=== PATIENT | male | born 1975 | race Caucasian/White ===

== ENCOUNTER 2022-02-02 14:00 | Outpatient (RCR) | payer OTHER, SELFPAY | END 2022-04-23 07:49 | disposition home or self-care (01) | LOC: HO.PTWFD 14:00 | PROVIDERS: PCP Physician Assistant; Visit Provider Student in an Organized Health Care Education/Training Program | DX: M25.551 Pain in right hip (principal) | CPT/HCPCS: 97110; 97140; 97161; 97530; 97535 ==

== ENCOUNTER 2023-11-08 14:12 | Outpatient (AMB) | payer OTHER, SELFPAY ==
--- NOTE | 2023-11-08 14:40 | A.OFFPC_ITS ---
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 Balancing Machine Operator Required: No Allergies codeine Adverse Reaction (Unknown, Verified 11/08/23 14:45) Unknown Tobacco use date assessed: 11/08/23 Dental Screening Dental Screen Date: 11/08/23 Did you have a dental visit in the last 12 months?: Yes Did you have a dental problem in the last 6 months where you did not have access to dental care?: No Was dental information given to patient?: Patient has dentist HPI HPI Comments History of Present Illness Details This is a 48-year-old male with a past medical history of low testosterone, severe obesity, hypertension, type 2 diabetes and psoriatic arthritis presenting to [facility]. He transferred from my panel at [facility] primary care. Type 2 diabetes, obesity, low testosterone-followed by endocrinology, Dr. Edge His last hemoglobin A1c was 6.1%, per patient. He is compliant with medications. He has weight loss on Mounjaro. He had an eye exam recently- no retinopathy per patient. He is on rosuvastatin 10 mg with an LDL of 74 and a goal of less than 100. Psoriatic arthritis-followed by [facility], Reta Ley. Taking Skyrizi. Right hip pain-she had an x-ray that showed severe osteoarthritis. He is followed at [facility]. He gets cortisone injections every 3 months. He tried physical therapy without improvement. He is hoping cortisone injections we will get him to age 51 before needing a hip replacement. Hypertension, microalbuminuria-compliant with hydrochlorothiazide-lisinopril. Blood pressure is controlled. Nonsmoker. Does not drink alcohol. ROS: Constitutional: No unexplained weight loss, fever, chills, fatigue or night sweats. Eyes: No vision changes Respiratory: No shortness of breath. Cardiovascular: No chest pain Endocrine: No cold or heat intolerance. No polyuria or polydipsia. Psychiatric: No depression or anxiety. Physical exam: Constitutional: Alert, in no distress. Neck: Supple, Full range of motion. No lymphadenopathy. No palpable thyroid masses. Respiratory: Clear to auscultation. Cardiovascular: S1 S2 regular. No murmurs Neurologic: No focal neurological deficits. Extremities: Warm and well perfused. No clubbing, cyanosis or edema. [facility] Medical History (Updated 11/08/23 @ 16:03 by IRIS Reyes) Morbid obesity Allergic rhinitis Microalbuminuria Right hip pain Essential hypertension Low testosterone Type II diabetes mellitus Hypothyroidism Diabetes mellitus Dyslipidemia Hypertension Psoriasis Surgical History H/O wisdom tooth extraction Hx of adenoidectomy Family History (Updated 11/08/23 @ 14:58 by Radha Rene) Father Psoriatic arthritis Social History Household Members: Spouse Housing: House Alcohol intake: current Alcohol intake frequency: does not drink Patient Tobacco Use Status: Never used Tobacco e-Cigarette/Vaping Use: Never Used service: No Current occupational status: employed 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 1. Little interest or pleasure in doing things: not at all 2. Feeling down, depressed, or hopeless: not at all 3. Trouble falling or staying asleep, or sleeping too much: not at all 4. Feeling tired or having little energy: not at all 5. Poor appetite or overeating: not at all 6. Feeling bad about yourself - or that you are a failure or have let yourself or your family down: not at all 7. Trouble concentrating on things, such as reading the newspaper or watching television: not at all 8. Moving or speaking so slowly that other people could have noticed. Or the opposite - being so fidgety or restless that you have been moving around a lot more than usual: not at all 9. Thoughts that you would be better off or of hurting yourself in some way: not at all Total score: 0 Depression Screening Interpretation: Negative Depression Screening Done: Yes 89592 - PHQ-9 Billing: Yes Source: Developed by Drs. Mary Curran, Aric Lugo and colleagues, with an educational lorenza from [employer]. Thrive Questionnaire Date Thrive assessed: 11/08/23 I am a: Patient What is your living situation today?: I have a steady place to live Within the past 12 months, did the food you bought not last and you didn't have the money to get more?: Never true Within the past 12 months, did you worry whether your food would run out before you got money to buy more?: Never true Do you have trouble paying for medicines?: No Do you have trouble getting transportation to medical appointments?: No Do you have trouble paying your heating and electricity bill?: No Do you have trouble taking care of your child, family member or friend?: No Do you have trouble with day-to-day activities such as bathing, preparing meals, shopping, managing finances, etc.?: No Are you currently unemployed and looking for a job?: No Are you interested in more education?: No Please select the resources that you would like help with: None Currently or been in a relationship where the following occur: No concerns reported THRIVE Score: 0 AUDIT C Alcohol Use Questionnaire (AUDIT-C) 1. How often do you have a drink containing alcohol?: Never Total Score: 0 Score Reviewed/Action Taken: Yes LUIS-7 AMB Questionnaire LUIS-7 Date LUIS - 7 assessed: 11/08/23 Feeling nervous, anxious, or on edge: 0 = Not at all Not being able to stop or control worryin = Not at all Worrying too much about different things: 0 = Not at all Trouble relaxin = Not at all Being so restless that it is hard to sit still: 0 = Not at all Becoming easily annoyed or irritable: 0 = Not at all Feeling afraid as if something awful might happen: 0 = Not at all Total LUIS-7 score (0-4 normal; 5-9 mild; 10-14 moderate; 15-21 severe): 0 Source: Developed by Mary Guzmán, Aric Lugo and colleagues, with an educational lorenza from [employer]. LUIS-7 Assessment Billing LUIS-7 Assessment Tool: LUIS-7 Assessment 28764 Physical exam (Primary Care) Vital Signs: Last Vital Signs Temp 98.7 F 11/08/23 15:06 Pulse 87 11/08/23 15:06 Resp 16 11/08/23 15:06 BP 128/80 11/08/23 15:06 Pulse Ox 96 11/08/23 15:06 Oxygen Delivery Method Room Air 11/08/23 15:06 BMI result Body Mass Index 53.9 Tobacco/Smoking Status: Tobacco use Status Tobacco use date assessed 11/08/23 11/08/23 14:59 Patient Tobacco Use Status Never used Tobacco 11/08/23 14:43 e-Cigarette/Vaping Use Never Used 11/08/23 14:59 PHQ-9: PHQ-9 Score PHQ-9: Total score 0 11/08/23 15:26 Depression Screening Interpretation: Negative Thrive Assessment: Date of Thrive Assessment Date Thrive assessed 11/08/23 11/08/23 15:08 Currently or been in a relationship where the following occur: No concerns reported Assessment and Plan Assessment & Plan (1) Type II diabetes mellitus: Code(s): E11.9 - Type 2 diabetes mellitus without complications Qualifiers: Diabetes mellitus superintendent terminal insulin use: without superintendent terminal use Diabetes mellitus complication status: with kidney complications Diabetes mellitus complication detail: with diabetic microalbuminuria Qualified Code(s): E11.29 - Type 2 diabetes mellitus with other diabetic kidney complication; R80.9 - Proteinuria, unspecified Plan: Well-controlled. Continue management per endocrinology. (2) Hypothyroidism: Code(s): E03.9 - Hypothyroidism, unspecified Qualifiers: Hypothyroidism type: acquired Qualified Code(s): E03.9 - Hypothyroidism, unspecified Plan: Continue levothyroxine. (3) Morbid obesity: Code(s): E66.01 - Morbid (severe) obesity due to excess calories Plan: Continue efforts at weight loss and taking Mounjaro. (4) Psoriasis: Code(s): L40.9 - Psoriasis, unspecified Plan: Managed by Dermatology. (5) Essential hypertension: Code(s): I10 - Essential (primary) hypertension Plan: Controlled. Continue efforts at weight loss and low-sodium diet and avoidance of caffeine. Plan Follow up in 6 months for physical exam. Medications: New rosuvastatin 10 mg PO BEDTIME 90 tabs 3RF levothyroxine 150 mcg PO DAILY 90 tabs 3RF rosuvastatin 10 mg PO BEDTIME 90 tabs 3RF levothyroxine 150 mcg PO DAILY 90 tabs 3RF rosuvastatin 10 mg PO BEDTIME 90 tabs 3RF levothyroxine 150 mcg PO DAILY 90 tabs 3RF lisinopril-hydrochlorothiazide 20-12.5 mg 1 tab PO DAILY 90 tabs 3RF Refilled lisinopril-hydrochlorothiazide 20-12.5 mg 1 tab PO DAILY 90 tabs 3RF lisinopril-hydrochlorothiazide 20-12.5 mg 1 tab PO DAILY 90 tabs 3RF Coding Level of Care Code Est Pt Level 4 (57825) Diagnoses Type 2 diabetes mellitus with diabetic microalbuminuria, without long-term current use of insulin E11.29; R80.9 Diabetes mellitus superintendent terminal insulin use: without superintendent terminal use Diabetes mellitus complication status: with kidney complications Diabetes mellitus complication detail: with diabetic microalbuminuria Acquired hypothyroidism E03.9 Hypothyroidism type: acquired Morbid obesity E66.01 Psoriasis L40.9 Essential hypertension I10 Additional Codes LUIS-7 Assessment Billing - LUIS-7 Assessment Tool: LUIS-7 Assessment [id number] ([id number])
[2023-11-08 15:06] VITALS: BP 128/80; PULSE 87; RESP 16; TEMP 37.1; O2SAT 96; BMI 53.9
== END 2023-11-08 15:41 | disposition home or self-care (01) ==
PROVIDERS: PCP Physician Assistant; Visit Provider Physician Assistant Medical
DX: E11.29 Type 2 diabetes mellitus with other diabetic kidney complication (principal); E66.01 Morbid (severe) obesity due to excess calories; Z68.43 Body mass index [BMI] 50.0-59.9, adult; R80.9 Proteinuria, unspecified; E03.9 Hypothyroidism, unspecified; L40.9 Psoriasis, unspecified; I10 Essential (primary) hypertension
CPT/HCPCS: 99214

== ENCOUNTER 2024-03-06 15:27 | Outpatient (AMB) | payer OTHER, SELFPAY ==
--- NOTE | 2024-03-06 15:40 | A.OFFPC_ITS ---
Vital Signs 03/06/24 15:48 Height 5 ft 3 in Weight 310 lb BMI 54.9 BP 116/72 Blood Pressure Location Rt brachial Position Sitting Pulse 97 Pulse Source Pulse Oximeter Pulse Oximetry (%) 97 Oxygen Delivery Method Room Air Intake Visit Reasons: cpe Intake Note: Physical Photoengraving Etcher Required: No Allergies codeine Adverse Reaction (Unknown, Verified 03/06/24 15:48) Unknown Tobacco use date assessed: 03/06/24 Dental Screening Dental Screen Date: 11/08/23 HPI HPI Comments History of Present Illness Details This is a 48-year-old male with a past medical history of low testosterone, severe obesity, hypertension, type 2 diabetes and psoriatic arthritis presenting to [facility]. He transferred from my panel at [facility] care. Type 2 diabetes, obesity, low testosterone-followed by endocrinology, Dr. Edge His last hemoglobin A1c was 6.0%, per patient. He is compliant with medications. He has weight loss on Mounjaro. He is on rosuvastatin. He had a panel of labs done recently, and they will send it to me via the portal. Psoriatic arthritis-followed by [facility], Reta Ley. Taking Skyrizi. He feels Cosentyx worked a little better, but his insurance stopped approving it. Right hip pain-he had an x-ray that showed severe osteoarthritis. He is f ollowed at [facility]. He gets cortisone injections every 3 months. He is starting physical therapy again. He will need a hip replacement, but he has to lose weight. He is working on this. He is following a low-carbohydrate diet and using protein shakes. He is also on Mounjaro. Defers referral. He takes Tylenol as needed, but the pain has been bothering him more. He does not want to take opioids. Hypertension, microalbuminuria-compliant with hydrochlorothiazide-lisinopril. Blood pressure is controlled. Nonsmoker. Does not drink alcohol. Patient up-to-date with flu and COVID-19 vaccines through the pharmacy. 12/11/2019 Tdap Received PPSV23 in 2013. Eye exam up-to-date. No diabetic retinopathy. Colonoscopy was done at [facility] in 2023. Patient was advised to repeat this in 10 years. ROS: Constitutional: No unexplained weight loss, fever, chills, fatigue or night sweats. Eyes: No vision changes, blurry vision, double vision, eye pain, eye redness, eye discharge. ENT: No hearing loss, sneezing, congestion, runny nose or sore throat. Respiratory: No shortness of breath, cough or sputum production. Cardiovascular: No chest pain, chest pressure or chest discomfort. No palpitations. Gastrointestinal: No anorexia, nausea, vomiting or diarrhea. No abdominal pain or blood in stool. Genitourinary: No dysuria, hematuria, testicular masses, groin swelling or pain. He endorses urinary frequency on Jardiance. Neurologic: No headache, dizziness, syncope, unilateral weakness, ataxia, numbness or tingling in the extremities. Musculoskeletal: See HPI Hematologic/Lymphatics: No bleeding or bruising. No painful lymph nodes. Skin: No rash or itching. Endocrine: No cold or heat intolerance. No polyuria or polydipsia. Psychiatric: No depression or anxiety. No SI/HI. Physical exam: Constitutional: Alert, in no distress. Head: Normocephalic. Eyes: Pupils are equal, round and reactive to light. Extraocular muscles intact. Ear, Nose and Throat: Canals clear. TMs normal. Normal nasal mucosa. No nasal discharge. No oral lesions. Neck: Supple, Full range of motion. No lymphadenopathy. No palpable thyroid masses. Respiratory: Clear to auscultation. Cardiovascular: S1 S2 regular. No murmurs. Gastrointestinal: Abdomen soft, non-tender, non-distended. Normal bowel sounds. No palpable masses. Neurologic: No focal neurological deficits. Symmetric patellar reflexes. Moves all extremities spontaneously. Sensation intact bilaterally. Skin: No rashes . Extremities: Warm and well perfused. 1+ bilateral lower extremity edema. Psychiatric: Normal mood and affect [facility] Medical History (Updated 03/06/24 @ 16:49 by IRIS Reyes) Class 3 obesity Morbid obesity Allergic rhinitis Microalbuminuria Right hip pain Essential hypertension Low testosterone Type II diabetes mellitus Hypothyroidism Diabetes mellitus Dyslipidemia Hypertension Psoriasis Surgical History H/O wisdom tooth extraction Hx of adenoidectomy Family History (Updated 11/08/23 @ 14:58 by Radha Rene MA) Father Psoriatic arthritis Social History Household Members: Spouse Housing: House Alcohol intake: current Alcohol intake frequency: does not drink Patient Tobacco Use Status: Never used Tobacco e-Cigarette/Vaping Use: Never Used service: No Current occupational status: employed 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 1. Little interest or pleasure in doing things: not at all 2. Feeling down, depressed, or hopeless: not at all 3. Trouble falling or staying asleep, or sleeping too much: not at all 4. Feeling tired or having little energy: not at all 5. Poor appetite or overeating: not at all 6. Feeling bad about yourself - or that you are a failure or have let yourself or your family down: not at all 7. Trouble concentrating on things, such as reading the newspaper or watching television: not at all 8. Moving or speaking so slowly that other people could have noticed. Or the opposite - being so fidgety or restless that you have been moving around a lot more than usual: not at all 9. Thoughts that you would be better off or of hurting yourself in some way: not at all Total score: 0 Source: Developed by Drs. Ge Downs, Mary Dunn, Aric Lugo and colleagues, with an educational lorenza from [employer]. Thrive Questionnaire Date Thrive assessed: 11/08/23 I am a: Patient What is your living situation today?: I have a steady place to live Within the past 12 months, did the food you bought not last and you didn't have the money to get more?: Never true Within the past 12 months, did you worry whether your food would run out before you got money to buy more?: Never true Do you have trouble paying for medicines?: No Do you have trouble getting transportation to medical appointments?: No Do you have trouble paying your heating and electricity bill?: No Do you have trouble taking care of your child, family member or friend?: No Do you have trouble with day-to-day activities such as bathing, preparing meals, shopping, managing finances, etc.?: No Are you currently unemployed and looking for a job?: No Are you interested in more education?: No Please select the resources that you would like help with: None Currently or been in a relationship where the following occur: No concerns reported THRIVE Score: 0 AUDIT C Alcohol Use Questionnaire (AUDIT-C) 1. How often do you have a drink containing alcohol?: Never 2. How many drinks containing alcohol do you have on a typical day when you are drinking?: 1 or 2 3. How often do you have six or more drinks on one occasion?: Never Total Score: 0 LUIS-7 AMB Questionnaire LUIS-7 Date LUIS - 7 assessed: 11/08/23 Feeling nervous, anxious, or on edge: 0 = Not at all Not being able to stop or control worryin = Not at all Worrying too much about different things: 0 = Not at all Trouble relaxin = Not at all Being so restless that it is hard to sit still: 0 = Not at all Becoming easily annoyed or irritable: 0 = Not at all Feeling afraid as if something awful might happen: 0 = Not at all Total LUIS-7 score (0-4 normal; 5-9 mild; 10-14 moderate; 15-21 severe): 0 Source: Developed by Drs. Ge Downs, Mary Dunn, Arci Lugo and colleagues, with an educational lorenza from [employer]. Physical exam (Primary Care) Vital Signs: Last Vital Signs Pulse 97 03/06/24 15:48 BP 116/72 03/06/24 15:48 Pulse Ox 97 03/06/24 15:48 Oxygen Delivery Method Room Air 03/06/24 15:48 BMI result Body Mass Index 54.9 Tobacco/Smoking Status: Tobacco use Status Tobacco use date assessed 03/06/24 03/06/24 15:50 Patient Tobacco Use Status Never used Tobacco 03/06/24 15:47 e-Cigarette/Vaping Use Never Used 03/06/24 15:47 PHQ-9: PHQ-9 Score PHQ-9: Total score 0 03/06/24 16:10 Thrive Assessment: Date of Thrive Assessment Date Thrive assessed 11/08/23 03/06/24 15:47 Currently or been in a relationship where the following occur: No concerns reported Coding Level of Care Code Est Pt Prev Care 40-64y(19830) Diagnoses Routine physical examination Z00.00 Type 2 diabetes mellitus with diabetic microalbuminuria, without long-term current use of insulin E11.29; R80.9 Diabetes mellitus 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 As part of this visit we reviewed the following issues, which are considered and essential part of preventative health in this age group: - Testicular cancer screening, which includes self exam teaching - Screening for colon cancer - Discussed Prostate cancer screening - Blood pressure screening - Cholesterol screening - Nutritional and exercise counseling - Counseling of injury prevention including fire prevention, smoke alarms and seat belt usage - Screening for depression - Education about skin cancer - Recommendations about immunizations - Recommendation of an eye exam - Screening for substance abuse (2) Type II diabetes mellitus: Code(s): E11.9 - Type 2 diabetes mellitus without complications Category: Medical Qualifiers: Diabetes mellitus termite control technician insulin use: without halfway use Diabetes mellitus complication status: with kidney complications Diabetes mellitus complication detail: with diabetic microalbuminuria Qualified Code(s): E11.29 - Type 2 diabetes mellitus with other diabetic kidney complication; R80.9 - Proteinuria, unspecified Plan: Well-controlled. Continue current regimen. Continue efforts at weight loss. (3) Right hip pain: Code(s): M25.551 - Pain in right hip Category: Medical Plan: This is secondary to severe arthritis. Trial of gabapentin. I prescribed this for 300 mg 3 times a day, but he plans to reserve it for nighttime. Advised him to try 300 mg at bedtime, and he can increase to 600 mg at bedtime if the lower dose is ineffective. Side effects and administration reviewed. Do not drive, operate heavy machinery if the medication causes drowsiness or dizziness. (4) Class 3 obesity: Code(s): E66.813 - Obesity, class 3 Category: Medical Plan: Continue GLP 1 and lifestyle modifications. Declines referral. Orders: Orders Prostate Specific Antigen Today Z12.5 - Encounter for screening for malignant neoplasm of prostate Medications: New gabapentin 300 mg PO TID 90 caps 0RF
[2024-03-06 15:48] VITALS: BP 116/72; PULSE 97; O2SAT 97; BMI 54.9
--- OUTSIDE RECORDS SUMMARY | 2024-03-06 17:18 | XMS_ITS | Continuity of Care Document ---
Author Organization [facility] Address [address] [place] [address] Phone [phone] Care Team Providers Care Plugging Machine Operator Name Role Phone Zoey Bhandari. Care Team Information Supervisor Grips [phone] Paradise Palafox . IRIS Care Team Information Receiv er [phone] Problems Active Problems Provider Date Type 2 diabetes mellitus Ignacio West M.D. Onset: 12/23/2021 Essential hypertension Ignacio West M.D. O nset: 12/23/2021 Obesity Ignacio West M.D. Onset: 1 Hypogonadotropic hypogonadism Ignacio West M.D. Onset: 05/08/2022 Hypothyroidism Ignacio West M.D. Onset: 0 05/08/2022 Psoriasis Ignacio West M.D. Onset: 0 08/25/2022 Social History Type Date Description Comments Sex Unknown Tobacco Use Start: Unknown Never Smoked Cigarettes Smoking Status Reviewed: 08/25/22 Never Smoked Cigaret stalin ETOH Use Occasionally consumes wine Allergies and adverse reactions Active Allergies Criticality Reaction Severity Comments Date Codeine Unable to assess criticality 12/23/2021 Medications Active Medications SIG Qnty Indications Ordering Provider Date Apjegobq69zd/0.5ML Solution Pen-Inject inject weekly 6ml Ignacio West M.D. 10/29/2023 Rnjkpnarn85ht Tablets 1 tablet by mouth every day 90tabs Ignacio West M.D. 10/29/2023 Nojrmtkhupxt64jr/5GM (1%) Gel apply 1 packet to skin very morning 150gm Ignacio West M.D. 10/01/2023 Lisinopril-Hydrochlor pokooknks59-00.5mg Tablets 1 by mouth every day 90Zoey Hogue. Zjheacsmx540qhf Tablets 1 by mouth every day 90taKenzi. CHICA Rhoades History Medications Zapkjedhkjbn80.25mg/Act (1.62%) Gel Apply 2 Packets Topically To Skin Once A Day Ignacio West M.D. 10/01/2023 - 10/01/2023 Trulicity1.5mg/0.5ML Solutio n Pen-Inject inject weekly 6ml Ignacio simon M.D. 06/07/2023 - 10/29/2023 Ywucvjit92.5mg/0.5ML Solutio n Pen-Inject inject weekly 6ml Ignacio simon M.D. 05/21/2023 - 10/29/2023 Vital Signs Date Vital Result Comment 02/11/2024 1:24pm BP Systolic 120 mmHg BP Diastolic 70 mmHg Heart Rate 72 /min Height 63 inches 5'3 Weight 312.25 lb BMI (Body Mass Index) 55.3 kg/m2 Results Test Acquired Date Facility Test Result H/L Range Note Laboratory test finding 02/11/2024 Inhouse Glucose Fingerstick 115 Comp. Metabolic Panel (14) 01/08/2024 [facility] Glucose 96 mg/dL 70-99 BUN 8 mg/dL 6-24 Creatinine 0.75 mg/dL Low 0.76-1.27 eGFR 112 mL/min/1.7 3 >59 BUN/Creatinine Ratio 11 9-20 Sodium 136 mmol/L 134-144 Potassium 4.3 mmol/L 3.5-5.2 Chloride 97 mmol/L 96-106 Carbon Dioxide, Total 23 mmol/L 20-29 Calcium 9.6 mg/dL 8.7-10.2 Protein, Total 6.8 g/dL 6.0-8.5 Albumin 4.4 g/dL 4.1-5.1 Globulin, Total 2.4 g/dL 1.5-4.5 Bilirubin, Total 0.4 mg/dL 0.0-1.2 Alkaline Phosphatase 63 IU/L 44-121 Ast (Sgot) 21 IU/L 0-40 Alt (SGPT) 27 IU/L 0-44 Laboratory test finding 01/08/2024 [facility] Testosterone 791 ng/dL 264-916 1 Albumin/Creatin ine Ratio, Random Urine 01/08/2024 [facility] Albumin, Urine 4.8 ug/mL Not Estab. Creatinine, Urine 34.7 mg/dL Not Estab. Alb/Creat Ratio 14 mg/gcreat 0-29 2 TSH+Free T4 01/08/2024 [facility] TSH 1.020 uIU/mL 0.450-4.50 0 T4,Free(Direct) 1.47 ng/dL 0.82- 1.77 CBC With Differential/Pl atelet 01/08/2024 [facility] WBC 9.5 x10E3/uL 3.4-10.8 RBC 5.80 x10E6/uL 4.14-5.80 Hemoglobin 15.9 g/dL 13.0-17.7 Hematocrit 50.6 % 37.5-51.0 MCV 87 fL 79-97 MCH 27.4 pg 26.6-33.0 MCHC 31.4 g/dL Low 31.5-35.7 RDW 13.7 % 11.6-15.4 Platelets 226 x10E3/uL 150-450 Neutrophils 62 % Not Estab. Lymphs 29 % Not Estab. Monocytes 7 % Not Estab. Eos 1 % Not Estab. Basos 1 % Not Estab. Immature Cells TNP Neutrophils (Absolute) 5.8 x10E3/uL 1.4-7.0 Lymphs (Absolute) 2.8 x10E3/uL 0.7-3.1 Monocytes(Absol fredy) 0.7 x10E3/uL 0.1-0.9 Eos (Absolute) 0.1 x10E3/uL 0.0-0.4 Baso (Absolute) 0.1 x10E3/uL 0.0-0.2 Immature Granulocytes 0 % Not Estab. Immature Grans (Abs) 0.0 x10E3/uL 0.0-0.1 NRBC TNP Hematology Comments: TNP Hemoglobin A1c 01/08/2024 [facility] Hemoglobin A1c 6.0 % High 4.8-5.6 3 Urinalysis, Complete 01/08/2024 [facility] Specific [place] 1.013 1.005-1.03 0 pH 7.5 5.0-7.5 Urine-Color Yellow Yellow Appearance Clear Clear WBC Esterase Negative Negative Protein Negative Negative/T race Glucose 3+ Abnormal Negative Ketones Negative Negative Occult Blood Negative Negative Bilirubin Negative Negative Urobilinogen,Se mi-Qn 0.2 mg/dL 0.2-1.0 Nitrite, Urine Negative Negative Microscopic Examination See Comment: 4 Microscopic Examination See below: 5 WBC None seen /hpf 0 - 5 RBC None seen /hpf 0 - 2 Epithelial Cells (non renal) None seen /hpf 0 - 10 Epithelial Cells (renal) TNP Casts None seen /lpf None seen Cast Type TNP Crystals TNP Crystal Type TNP Mucus Threads TNP Bacteria None seen None seen/Few Yeast TNP Trichomonas TNP Comment TNP Lipid Panel 01/08/2024 [facility] Cholesterol, Total 123 mg/dL 100-199 Triglycerides 158 mg/dL High 0-149 HDL Cholesterol 33 mg/dL Low >39 VLDL Cholesterol Sergo 27 mg/dL 5-40 LDL Chol Calc (Nih) 63 mg/dL 0-99 LDL Calc Comment: TNP Laboratory test finding 10/29/2023 Inhouse Glucose Fingerstick 145 Hemoglobin A1c 6.0% Laboratory test finding 05/21/2023 Inhouse Glucose Fingerstick 97 Hemoglobin A1c 6.3% Basic Metabolic Panel 01/29/2023 [facility] Glucose 118 mg/dL High (70-99) BUN 13 mg/dL (6-20) Creatinine 0.7 mg/dL (0.7-1.2) Sodium 137 mmol/L (133-145) Potassium 4.5 mmol/L (3.6-5.2) Chloride 99 mmol/L (98-107) Bicarbonate 28 mmol/L (22-29) Anion Gap 10 (4-17) Calcium 9.6 mg/dL (8.6-10.5) Estimated GFR Creatinine 113 ML/MIN/1.7 3M2 6 Lipid Panel 01/29/2023 [facility] Cholesterol, Total 133 mg/dL (<200) Triglyceride 112 mg/dL (<150) HDL Chol 37 mg/dL Low (>39) LDL Cholesterol, Calculated 74 mg/dL (0-130) Non HDL Cholesterol (Calc) 96 mg/dL (<160) Urinalysis Complete 01/29/2023 [facility] Appear/Color YELLOW 7 SP. [place] 1.028 (1.002-1.0 30) Urine PH 6.5 (5.0-8.0) Urine Albumin TRACE Abnormal (Neg) Urine Glucose NEGATIVE (Neg) Urine Ketones NEGATIVE (Neg) Urine Bilirubin NEGATIVE (Neg) Urine Hemoglobin NEGATIVE (Neg) Urine Nitrite NEGATIVE (Neg) Urine Leukocyte NEGATIVE (Neg) Urobilinogen NORMAL mg/dL (Norm) Urine WBCs 1 /HPF (0-5) Urine RBCs 1 /HPF (0-3) Mucus SLIGHT /LPF Laboratory test finding 01/29/2023 [facility] Hemoglobin A1c 6.0 % High (4.0-5.6) 8 Complete Abc With Diff 01/29/2023 [facility] WBC 9.3 K/MM3 (4.0-11.0) RBC 5.56 M/MM3 (4.70-6.10 ) HGB 15.0 GM/DL (13.7-17.1 ) HCT 48.4 % (40.5-50.0 ) MCV 87.1 FL (80.0-94.0 ) MCH 27.0 pg (27.0-34.0 ) MCHC 31.0 g/dL Low (33.0-37.0 ) PLT 236 K/MM3 (150-460) RDW-SD 45.3 FL (<47.0) MPV 11.2 FL (9.4-12.4) Automated NRBC 0.0 #/100WBC'S Abs. NRBC 0.0 K/MM3 Neut # 5.4 K/MM3 (1.3-7.0) Lymph # 3.0 K/MM3 (0.8-3.1) [place]# 0.8 K/MM3 (0.4-1.3) Eo # 0.1 K/MM3 (0.0-0.4) Baso # 0.1 K/MM3 (0.0-0.1) Abs. Imm Gran 0.0 K/MM3 Neut 57.8 % (44-76) Lymph 32.0 % (15-43) Monocyte 8.2 % (4.5-10.5) Eo 1.1 % (0-6) Baso 0.5 % (0-2) Imm Gran 0.4 % Laboratory test finding 01/29/2023 [facility] PSA 0.1 NG/ML (0-4) 9 TSH With Reflex To FT4 1.67 uIU/mL (0.4-4.2) 25Oh Vitamin D 45.4 NG/ML (20-50 ) Testosterone 500 ng/dL (280-800) Laboratory test finding 11/27/2022 Inhouse Glucose Fingerstick 94 Hemoglobin A1c 5.8% Laboratory test finding 08/25/2022 Inhouse Glucose Fingerstick 99 Hemoglobin A1c 5.8% Laboratory test finding 05/22/2022 [facility] Testosterone 304 ng/dL (280-800) Laboratory test finding 05/08/2022 [facility] Testosterone Total (Males > 15 Yrs) <pending> Laboratory test finding 05/08/2022 Inhouse Glucose Fingerstick 126 Hemoglobin A1c 6.0 Laboratory test finding 02/07/2022 [facility] Cortisol 4.7 g /dL 10 Laboratory test finding 02/06/2022 [facility] Cortisol <pending> Laboratory test finding 02/06/2022 Inhouse Glucose Fingerstick 135 Laboratory test finding 02/02/2022 [facility] Cortisol 3.6 g /dL 11 Laboratory test finding 01/12/2022 [facility] Cortisol <pending> Comprehensive Metabolic Panl 01/09/2022 [facility] Glucose 104 mg/dL High (70-99) BUN 9 mg/dL (6-20) Creatinine 0.7 mg/dL (0.7-1.2) Sodium 137 mmol/L (133-145) Potassium 4.7 mmol/L (3.6-5.2) Chloride 99 mmol/L (98-107) Bicarbonate 28 mmol/L (22-29) Anion Gap 10 (4-17) Albumin 4.6 GM/DL (3.4-4.8) Calcium 9.6 mg/dL (8.6-10.5) Bilirubin,Total 0.4 mg/dL (0-1.2 ) Total Protein 7.3 GM/DL (6.2-8.2 ) Ag Ratio 1.7 Ast 33 U/L (0-40) Alk Phos 64 U/L (40-129) Alt 42 U/L High (0-41) Estimated GFR Creatinine 117 ML/MIN/1.7 3M2 12 Lipid Panel 01/09/2022 [facility] Cholesterol, Total 151 mg/dL (<200) Triglyceride 196 mg/dL High (<150) HDL Chol 32 mg/dL Low (>39) LDL Cholesterol, Calculated 80 mg/dL (0-130) Non HDL Cholesterol (Calc) 119 mg/dL (<160) Urinalysis Complete 01/09/2022 [facility] Appear/Color YELLOW 13 SP. [place] 1.019 (1.002-1.0 30) Urine PH 6.0 (5.0-8.0) Urine Albumin NEGATIVE (Neg) Urine Glucose NEGATIVE (Neg) Urine Ketones NEGATIVE (Neg) Urine Bilirubin NEGATIVE (Neg) Urine Hemoglobin NEGATIVE (Neg) Urine Nitrite NEGATIVE (Neg) Urine Leukocyte NEGATIVE (Neg) Urobilinogen NORMAL mg/dL (Norm) Urine WBCs 1 /HPF (0-5) Urine RBCs 1 /HPF (0-3) Mucus SLIGHT /LPF Squamous Epith <1 /HPF (0-8) Complete Abc With Diff 01/09/2022 [facility] WBC 8.6 K/MM3 (4.0-11.0) RBC 5.08 M/MM3 (4.70-6.10 ) HGB 13.7 GM/DL (13.7-17.1 ) HCT 44.8 % (40.5-50.0 ) MCV 88.2 FL (80.0-94.0 ) MCH 27.0 pg (27.0-34.0 ) MCHC 30.6 g/dL Low (33.0-37.0 ) PLT 192 K/MM3 (150-460) RDW-SD 44.7 FL (<47.0) MPV 11.5 FL (9.4-12.4) Automated NRBC 0.0 #/100WBC'S Abs. NRBC 0.0 K/MM3 Neut # 5.0 K/MM3 (1.3-7.0) Lymph # 2.7 K/MM3 (0.8-3.1) [place]# 0.6 K/MM3 (0.4-1.3) Eo # 0.2 K/MM3 (0.0-0.4) Baso # 0.1 K/MM3 (0.0-0.1) Abs. Imm Gran 0.0 K/MM3 Neut 58.0 % (44-76) Lymph 31.8 % (15-43) Monocyte 6.9 % (4.5-10.5) Eo 2.2 % (0-6) Baso 0.6 % (0-2) Imm Gran 0.5 % Laboratory test finding 01/09/2022 [facility] TSH 2.05 uIU/mL (0.4-4.2) Free T4 1.27 ng/dL (0.70-1.80 ) Urinary Microalbumin 01/09/2022 [facility] Micro-Albumin 24.2 mg/L High (<20) 14 Malb/Creat Ratio 19.1 MG/GM (0-20) Urine Creat For Micro Albumin 126.4 mg/dL Laboratory test finding 01/09/2022 [facility] Prolactin 10.8 NG/ML (4.0-15.2) FSH 0.8 MIU/ML Low (1.5-12.4) 15 LH 0.5 MIU/ML Low (1.5-12.4) 16 Testosterone 554 ng/dL (280-800) Anti Thyroid Peroxidase AB <3.0 IU/mL (<5.6) 17 Cortisol 5.0 g /dL 18 1 Adult male reference interval is based on a population of healthy nonobese males (BMI <30) between 19 and 39 years old. Jimmy, et.al. JCEM 2017,102;6622-3303. PMID: 28278011. 2 Normal: 0 - 29 Moderately increased: 30 - 300 Severely increased: >300 3 Prediabetes: 5.7 - 6 .4 Diabetes: >6.4 Glycemic control for adults with diabetes: <7.0 4 Microscopic follows if indicated. 5 Microscopic was kathie cated and was performed. 6 Creatinine based est imated glomerular filtration (eGFR) in adults is calculated using the National Kidney Foundation recommended 2020 CKD-EPI equation. Estimates GFR from serum creatinine, age and sex. 7 CLEAR 8 MONITORING: In known diabetic patients, hemoglobin A1c targets should be discussed with health care provider. DIAGNOSTIC USE: The [place] Diabetes Association (ADA) and the World Health Organization (WHO) recommend the use of HbA1c to diagnose diabetes using a threshold of 6.5%. Patients who have an HbA1c between 5.7% and 6.4% are considered at increased risk for developing diabetes in the future. CAUTION: Falsely low HbA1c results may be observed in patients with hemolytic anemia, homozygous forms of abnormal hemoglobin (e.g. SS, CC, SC), , recent blood loss or hemoglobin F greater than 7%. Fructosamine may be used as an alternate test in these cases. REFERENCE: ADA: Standards of Medical Care in Diabetes 2020, The Journal of Clinical and Applied Research and Education Volume 43, Supplement 1 9 TEST PERFORMED USING THE CLARI ELECTROCHEMILLUMINESCENCE TOTAL PSA ASSAY. PSA VALUES OBTAINED WITH OTHER ASSAY METHODS OR KITS CANNOT BE USED INTERCHANGEABLY. 10 Reference Range: 6-10 am: 6.0-18.4 ug/dL 4-8 pm: 2.7-10.5 ug/dL 11 Reference Range: 6-10 am: 6.0-18.4 ug/dL 4-8 pm: 2.7-10.5 ug/dL 12 Creatinine based est imated glomerular filtration (eGFR) in adults is calculated using the National Kidney Foundation recommended 2020 CKD-EPI equation. Estimates GFR from serum creatinine, age and sex. 13 CLEAR 14 The urine microalbum in test is designed to monitor renal function. When screening for Bence Craig proteinuria, urine electrophoresis is recommended. 15 Reference Range: Follicular: 3.5-12.5 mIU/mL Ovulation: 4.7-21.5 mIU/mL Luteal: 1.7-7.7 mIU/mL Postmenopausal: 25.8-134.8 mIU/mL 16 Reference Range: Follicular: 2.4-12.6 mIU/mL Ovulation: 14.0-95.6 mIU/mL Luteal: 1.0-11.4 mIU/mL Postmenopausal: 7.7-58.5 mIU/mL 17 Antibody measurement represents one parameter in a multicriteria diagnostic process. Correlate results with clinical presentation. This test was performed on the WhenSoon immunoassay system. 18 Reference Range: 6-10 am: 6.0-18.4 ug/dL 4-8 pm: 2.7-10.5 ug/dL Procedures Date Code Description Status 08/25/2022 43050 Additional suppl ies, materials, staff time over and above usual Completed 05/08/2022 94663 Additional suppl ies, materials, staff time over and above usual Completed 02/06/2022 15222 Additional suppl ies, materials, staff time over and above usual Completed 12/23/2021 46579 Additional suppl ies, materials, staff time over and above usual Completed Medical Devices Description No Information Available Encounters Type Date Location Provider Dx Diagnosis Office Visit 02/11/2024 1:30p Main Office Ignacio West M.D. E11.9 Type 2 diabetes mellitus without complications Assessments Date Code Description Provider 02/11/2024 E11.9 Type 2 diabetes mellitus without complications Ignacio West M.D. Plan of Treatment Future Appointment(s):* 08/17/2024 8:15 am - Ignacio West M.D. at Main Office 02/11/2024 - Ignacio West M.D.* E11.9 Type 2 diabetes mellitus without complications Functional Status Description No Information Available Mental Status Description No Information Available Referrals Description No Information Available
== END 2024-03-06 16:52 | disposition home or self-care (01) ==
PROVIDERS: PCP Physician Assistant; Visit Provider Physician Assistant Medical
DX: Z00.00 Encounter for general adult medical examination without abnormal findings (principal); E11.29 Type 2 diabetes mellitus with other diabetic kidney complication; Z68.43 Body mass index [BMI] 50.0-59.9, adult; E66.813 Obesity, class 3; R80.9 Proteinuria, unspecified; M25.551 Pain in right hip

== ENCOUNTER → 2024-03-06 15:27 | Outpatient (BNVA) | payer OTHER, SELFPAY | PROVIDERS: PCP Physician Assistant; Visit Provider Physician Assistant Medical ==

== ENCOUNTER 2024-04-13 11:11 | Outpatient (AMB) | payer OTHER, SELFPAY ==
--- NOTE | 2024-04-13 11:14 | A.OFFPC_ITS ---
Vital Signs 04/13/24 11:18 Height 5 ft 3 in Weight 303 lb BMI 53.7 BP 132/65 Blood Pressure Location Lt brachial Position Sitting Respiration 13 Pulse 74 Pulse Source Pulse Oximeter Temp 98.1 F Temp Source Temporal Artery Scan Pulse Oximetry (%) 96 Oxygen Delivery Method Room Air Intake Visit Reasons: F/u Accommodation Letter Intake Note: follow up on letter of accommodation Manager Collection Required: No Allergies codeine Adverse Reaction (Unknown, Verified 04/13/24 11:15) Unknown Tobacco use date assessed: 04/13/24 Dental Screening Dental Screen Date: 04/13/24 Did you have a dental visit in the last 12 months?: Yes Did you have a dental problem in the last 6 months where you did not have access to dental care?: No Was dental information given to patient?: Patient has dentist HPI HPI Comments History of Present Illness Details This is a 48-year-old male with a past medical history of class 3 obesity, hypertension, type 2 diabetes and chronic right hip pain secondary to severe osteoarthritis presenting to discuss work accommodations. The patient has worked from home 4/5 days per week for years. His employer recently instituted a policy for people to return to the office. There is no elevator in his building, and he works on the 2nd floor. Patient states there is not space enough to have office moved to the 1st floor of the building. Patient is under the care of orthopedics for right hip osteoarthritis. He will need a hip replacement eventually. He had a cortisone injection recently. He has done physical therapy. It affects his gait and balance. The stairwell at his work is also not entirely and closed. He is on gabapentin for pain which also can contribute to balance issue. He has spoken to 2 of his supervisors at work, and they support him continuing his current schedule and request a letter for these accommodations. He also mentions that he has seen a therapist in the past for some issues regarding sensitivity and processing. They have considered whether or not he may have ADHD and/or have autism spectrum disorder. He is not interested in evaluation with Psychiatry at this time, but he may want to consider it in the future. He has coping strategies in place so this does not affect the quality of his life at this time. His is very supportive of him. [facility] Medical History (Updated 04/13/24 @ 12:54 by IRIS Reyes) Osteoarthritis of right hip Class 3 obesity Morbid obesity Allergic rhinitis Microalbuminuria Right hip pain Essential hypertension Low testosterone Type II diabetes mellitus Hypothyroidism Diabetes mellitus Dyslipidemia Hypertension Psoriasis Surgical History H/O wisdom tooth extraction Hx of adenoidectomy Family History (Updated 11/08/23 @ 14:58 by Radha Rene MA) Father Psoriatic arthritis Social History Household Members: Spouse Housing: House Alcohol intake: current Alcohol intake frequency: does not drink Patient Tobacco Use Status: Never used Tobacco e-Cigarette/Vaping Use: Never Used service: No Current occupational status: employed 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 08428 - PHQ-9 Billing: Patient declined-do not bill Source: Developed by Drs. Ge Downs, Mary Dunn, Aric Lugo and colleagues, with an educational lorenza from [employer]. Thrive Questionnaire Date Thrive assessed: 04/13/24 I am a: Patient What is your living situation today?: I have a steady place to live Within the past 12 months, did the food you bought not last and you didn't have the money to get more?: Never true Within the past 12 months, did you worry whether your food would run out before you got money to buy more?: Never true Do you have trouble paying for medicines?: No Do you have trouble getting transportation to medical appointments?: No Do you have trouble paying your heating and electricity bill?: No Do you have trouble taking care of your child, family member or friend?: No Do you have trouble with day-to-day activities such as bathing, preparing meals, shopping, managing finances, etc.?: No Are you currently unemployed and looking for a job?: No Are you interested in more education?: No Please select the resources that you would like help with: None Currently or been in a relationship where the following occur: No concerns reported THRIVE Score: 0 AUDIT C Alcohol Use Questionnaire (AUDIT-C) 3. How often do you have six or more drinks on one occasion?: Never Total Score: 0 LUIS-7 AMB Questionnaire LUIS-7 Date LUIS - 7 assessed: 04/13/24 Feeling nervous, anxious, or on edge: 0 = Not at all Not being able to stop or control worryin = Not at all Worrying too much about different things: 0 = Not at all Trouble relaxin = Not at all Being so restless that it is hard to sit still: 0 = Not at all Becoming easily annoyed or irritable: 0 = Not at all Feeling afraid as if something awful might happen: 0 = Not at all Total LUIS-7 score (0-4 normal; 5-9 mild; 10-14 moderate; 15-21 severe): 0 Source: Developed by Drs. Ge Downs, Mary Dunn, Aric Lugo and colleagues, with an educational lorenza from [employer]. LUIS-7 Assessment Billing LUIS-7 Assessment Tool: LUIS-7 Assessment 97191 Physical exam (Primary Care) Vital Signs: Last Vital Signs Temp 98.1 F 04/13/24 11:18 Pulse 74 04/13/24 11:18 Resp 13 04/13/24 11:18 BP 132/65 04/13/24 11:18 Pulse Ox 96 04/13/24 11:18 Oxygen Delivery Method Room Air 04/13/24 11:18 BMI result Body Mass Index 53.7 Tobacco/Smoking Status: Tobacco use Status Tobacco use date assessed 04/13/24 04/13/24 11:17 Patient Tobacco Use Status Never used Tobacco 04/13/24 11:17 e-Cigarette/Vaping Use Never Used 04/13/24 11:17 Thrive Assessment: Date of Thrive Assessment Date Thrive assessed 04/13/24 04/13/24 11:17 Currently or been in a relationship where the following occur: No concerns reported Coding Level of Care Code Est Pt Level 3 (77289) Diagnoses Osteoarthritis of right hip M16.11 Additional Codes LUIS-7 Assessment Billing - LUIS-7 Assessment Tool: LUIS-7 Assessment 39578 ([id number]) Assessment & Plan Assessment & Plan (1) Osteoarthritis of right hip: Code(s): M16.11 - Unilateral primary osteoarthritis, right hip Category: Medical Plan: Continue management per Orthopedics. Eventually he will need a hip replacement. Gabapentin 300 mg 3 times daily as needed. Side effects including sedation and drowsiness reviewed. 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 He will follow up if he needs additional documentation.
[2024-04-13 11:18] VITALS: BP 132/65; PULSE 74; RESP 13; TEMP 36.7; O2SAT 96; BMI 53.7
--- OUTSIDE RECORDS SUMMARY | 2024-04-13 11:50 | XMS_ITS | Continuity of Care Document ---
Author Organization [facility] Address [address] [place] [address] Phone [phone] Care Team Providers Care Neuro Psych Sales Specialist Name Role Phone Zoey Bhandari. Care Team Information Graduate School Dean [phone] Paradise Palafox . IRIS Care Team Information Receiv er [phone] Problems Active Problems Provider Date Type 2 [...] Medications SIG Qnty Indications Ordering Provider Date Cwpyiomw26sr/0.5ML Solution Pen-Inject inject weekly 6ml Ignacio West M.D. 10/29/2023 Kkcwenqck79nf Tablets 1 tablet by mouth every day 90tabs Ignacio West M.D. 10/29/2023 Kocbcoxgljgk49ma/5GM (1%) Gel apply 1 packet to skin very morning 150gm Ignacio West M.D. 10/01/2023 Lisinopril-Hydrochlor gsabxeqkb62-85.5mg Tablets 1 by mouth every day 90Zoey Hogue. Elkitnaff328piz Tablets 1 by mouth every day 90taKenzi. CHICA Rhodaes History Medications Qdqvyjzlgtmz14.25mg/Act (1.62%) Gel Apply 2 Packets Topically To Skin Once A Day Ignacio West M.D. 10/01/2023 - 10/01/2023 Trulicity1.5mg/0.5ML Solutio n Pen-Inject inject weekly 6ml Ignacio simon M.D. 06/07/2023 - 10/29/2023 Imuneiky94.5mg/0.5ML Solutio n Pen-Inject inject weekly 6ml Ignacio [...] 4.8-5.6 3 Urinalysis, Complete 01/08/2024 [facility] [place] 1.013 1.005-1.03 0 pH 7.5 5.0-7.5 Urine-Color [...] Hemoglobin A1c 6.3% Basic Metabolic Panel 01/29/2023 [facility] Glucose 118 mg/dL High (70-99) BUN 13 mg/dL (6-20) Creatinine 0.7 mg/dL (0.7-1.2) Sodium 137 mmol/L (133-145) Potassium 4.5 mmol/L (3.6-5.2) Chloride 99 mmol/L (98-107) Bicarbonate 28 mmol/L (22-29) Anion Gap 10 (4-17) Calcium 9.6 mg/dL (8.6-10.5) Estimated GFR Creatinine 113 ML/MIN/1.7 3M2 6 Lipid Panel 01/29/2023 [facility] Cholesterol, Total 133 mg/dL (<200) Triglyceride 112 mg/dL (<150) HDL Chol 37 mg/dL Low (>39) LDL Cholesterol, Calculated 74 mg/dL (0-130) Non HDL Cholesterol (Calc) 96 mg/dL (<160) Urinalysis Complete 01/29/2023 [facility] Appear/Color YELLOW 7 SP. [place] 1.028 (1.002-1.0 30) Urine PH 6.5 (5.0-8.0) Urine Albumin TRACE Abnormal (Neg) Urine Glucose NEGATIVE (Neg) Urine Ketones NEGATIVE (Neg) Urine Bilirubin NEGATIVE (Neg) Urine Hemoglobin NEGATIVE (Neg) Urine Nitrite NEGATIVE (Neg) Urine Leukocyte NEGATIVE (Neg) Urobilinogen NORMAL mg/dL (Norm) Urine WBCs 1 /HPF (0-5) Urine RBCs 1 /HPF (0-3) Mucus SLIGHT /LPF Laboratory test finding 01/29/2023 [facility] Hemoglobin A1c 6.0 % High (4.0-5.6) 8 Complete Abc With Diff 01/29/2023 [facility] WBC 9.3 K/MM3 (4.0-11.0) RBC [...] K/MM3 (1.3-7.0) Lymph # 3.0 K/MM3 (0.8-3.1) [place]# 0.8 K/MM3 (0.4-1.3) Eo # 0.1 K/MM3 [...] Hemoglobin A1c 5.8% Laboratory test finding 05/22/2022 [facility] Testosterone 304 ng/dL (280-800) Laboratory test finding 05/08/2022 [facility] Testosterone Total (Males > 15 Yrs) <pending> Laboratory test finding 05/08/2022 Inhouse Glucose Fingerstick 126 Hemoglobin A1c 6.0 Laboratory test finding 02/07/2022 [facility] Cortisol 4.7 g /dL 10 Laboratory test finding 02/06/2022 [facility] Cortisol <pending> Laboratory test finding 02/06/2022 Inhouse Glucose Fingerstick 135 Laboratory test finding 02/02/2022 [facility] Cortisol 3.6 g /dL 11 Laboratory test finding 01/12/2022 [facility] Cortisol <pending> Comprehensive Metabolic Panl 01/09/2022 [facility] Glucose 104 mg/dL High (70-99) [...] 117 ML/MIN/1.7 3M2 12 Lipid Panel 01/09/2022 [facility] Cholesterol, Total 151 mg/dL (<200) Triglyceride 196 mg/dL High (<150) HDL Chol 32 mg/dL Low (>39) LDL Cholesterol, Calculated 80 mg/dL (0-130) Non HDL Cholesterol (Calc) 119 mg/dL (<160) Urinalysis Complete 01/09/2022 [facility] Appear/Color YELLOW 13 SP. [place] 1.019 (1.002-1.0 30) Urine PH 6.0 (5.0-8.0) Urine Albumin NEGATIVE (Neg) Urine Glucose NEGATIVE (Neg) Urine Ketones NEGATIVE (Neg) Urine Bilirubin NEGATIVE (Neg) Urine Hemoglobin NEGATIVE (Neg) Urine Nitrite NEGATIVE (Neg) Urine Leukocyte NEGATIVE (Neg) Urobilinogen NORMAL mg/dL (Norm) Urine WBCs 1 /HPF (0-5) Urine RBCs 1 /HPF (0-3) Mucus SLIGHT /LPF Squamous Epith <1 /HPF (0-8) Complete Abc With Diff 01/09/2022 [facility] WBC 8.6 K/MM3 (4.0-11.0) RBC [...] K/MM3 (1.3-7.0) Lymph # 2.7 K/MM3 (0.8-3.1) [place]# 0.6 K/MM3 (0.4-1.3) Eo # 0.2 K/MM3 (0.0-0.4) Baso # 0.1 K/MM3 (0.0-0.1) Abs. Imm Gran 0.0 K/MM3 Neut 58.0 % (44-76) Lymph 31.8 % (15-43) Monocyte 6.9 % (4.5-10.5) Eo 2.2 % (0-6) Baso 0.6 % (0-2) Imm Gran 0.5 % Laboratory test finding 01/09/2022 [facility] TSH 2.05 uIU/mL (0.4-4.2) Free T4 1.27 ng/dL (0.70-1.80 ) Urinary Microalbumin 01/09/2022 [facility] Micro-Albumin 24.2 mg/L High (<20) 14 Malb/Creat Ratio 19.1 MG/GM (0-20) Urine Creat For Micro Albumin 126.4 mg/dL Laboratory test finding 01/09/2022 [facility] Prolactin 10.8 NG/ML (4.0-15.2) FSH 0.8 MIU/ML Low (1.5-12.4) 15 LH 0.5 MIU/ML Low (1.5-12.4) 16 Testosterone 554 ng/dL (280-800) Anti Thyroid Peroxidase AB <3.0 IU/mL (<5.6) 17 Cortisol 5.0 g /dL 18 1 Adult male reference interval is based on a population of healthy nonobese males (BMI <30) between 19 and 39 years old. Jimmy, et.al. JCEM 2017,102;8596-1576. PMID: 76417204. 2 Normal: 0 - 29 Moderately increased: [...] with health care provider. DIAGNOSTIC USE: The [place] Diabetes Association (ADA) and the World Health [...] presentation. This test was performed on the [employer] immunoassay system. 18 Reference Range: 6-10 am: 6.0-18.4 ug/dL 4-8 pm: 2.7-10.5 ug/dL Procedures Date Code Description Status 08/25/2022 86145 Additional suppl ies, materials, staff time over and above usual Completed 05/08/2022 [id number] Additional suppl ies, materials, staff time over and above usual Completed 02/06/2022 20331 Additional suppl ies, materials, staff time over and above usual Completed 12/23/2021 [id number] Additional suppl ies, materials, staff time over [...]
== END 2024-04-13 11:47 | disposition home or self-care (01) ==
PROVIDERS: PCP Physician Assistant Medical; Visit Provider Physician Assistant Medical
DX: M16.11 Unilateral primary osteoarthritis, right hip (principal)

== ENCOUNTER → 2024-04-13 11:11 | Outpatient (BNVA) | payer OTHER, SELFPAY | PROVIDERS: PCP Physician Assistant; Visit Provider Physician Assistant Medical | DX: M16.11 Unilateral primary osteoarthritis, right hip (principal) | CPT/HCPCS: 96127 ==

== ENCOUNTER 2024-04-24 13:57 | Outpatient (AMB) | payer OTHER, SELFPAY ==
[2024-04-24 14:14] VITALS: BP 130/72; PULSE 75; TEMP 36.9; O2SAT 96
--- NOTE | 2024-04-24 14:14 | MHC.OFFWIV ---
Intake Vital Signs 04/24/24 14:14 Height 5 ft 3 in BP 130/72 Blood Pressure Location Lt brachial Position Sitting Pulse 75 Pulse Source Pulse Oximeter Temp 98.5 F Temp Source Oral Pulse Oximetry (%) 96 Oxygen Delivery Method Room Air Intake Visit Reasons: EP Bronchitis? Patient Tobacco Use Status: Never used Tobacco Allergies codeine Adverse Reaction (Unknown, Verified 04/13/24 11:15) Unknown Do you need a note to return to daycare/school/sports/work: No HPI HPI Comments History of Present Illness Details 48 y/o male patient who presents to the walk in clinic with c/o URI symptoms since . Reports cough, chest congestion, and body aches. [facility] Medical History (Updated 04/24/24 @ 14:59 by Kylah Cantu NP) Cough Acute respiratory disease Osteoarthritis of right hip Class 3 obesity Morbid obesity Allergic rhinitis Microalbuminuria Right hip pain Essential hypertension Low testosterone Type II diabetes mellitus Hypothyroidism Diabetes mellitus Dyslipidemia Hypertension Psoriasis Surgical History H/O wisdom tooth extraction Hx of adenoidectomy Family History (Updated 11/08/23 @ 14:58 by Radha Rene MA) Father Psoriatic arthritis Social History Household Members: Spouse Housing: House Alcohol intake: current Alcohol intake frequency: does not drink Patient Tobacco Use Status: Never used Tobacco e-Cigarette/Vaping Use: Never Used service: No Current occupational status: employed 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 Current occupational exposures/hazards: No Cognitive needs: No Hearing needs: No Vision needs: Yes Review of Systems Const All systems reviewed & are unremarkable except as noted in HPI and below Physical Exam Vital Signs: Last Vital Signs Temp 98.5 F 04/24/24 14:14 Pulse 75 04/24/24 14:14 BP 130/72 04/24/24 14:14 Pulse Ox 96 04/24/24 14:14 Oxygen Delivery Method Room Air 04/24/24 14:14 Const General: cooperative and no acute distress Nutritional Appearance: obese Orientation/consciousness: patient oriented x3 HEENT Head: Yes normocephalic Ears: external ears normal and TM abnormal with fluid behind the TM bilateral General nose exam: Nasal discharge present Face and sinus: Yes sinuses nontender Mouth: moist mucous membranes Throat: Yes uvula midline Resp Effort & Inspection: normal respiratory effort, able to speak in complete sentences, no audible wheezes and Actively coughing Auscultation: no crackles, no rales, no rhonchi and wheezes Cardio Heart sounds: S1 normal heart sound present and S2 normal heart sound present Neuro General: patient oriented x3 Assessment & Plan Assessment & Plan (1) Acute respiratory disease: Code(s): J06.9 - Acute upper respiratory infection, unspecified Plan: Ordered SARs Ordered Prednisone (2) Cough: Code(s): R05.9 - Cough, unspecified Qualifiers: Cough type: acute Qualified Code(s): R05.1 - Acute cough Plan: Ordered SARs Ordered Prednisone Orders: Orders SARS-CoV2/FLU/RSV Today J06.9 - Acute upper respiratory infection, unspecified Medications: New benzonatate 100 mg PO TID 90 caps 0RF cough R05.9 - Cough, unspecified prednisone 50 mg PO DAILY 5 days 5 tabs 0RF R05.9 - Cough, unspecified Coding Level of Care Code Est Pt Level 4 (27846) Diagnoses Acute respiratory disease J06.9 Acute cough R05.1 Cough type: acute Time Spent (min) 20
--- OUTSIDE RECORDS SUMMARY | 2024-04-24 16:01 | XMS_ITS | Continuity of Care Document ---
Author Organization [facility] Address [address] [place] [address] Phone [phone] Care Team Providers Care Towerman Name Role Phone Zoey Bhandari. Care Team Information Microarray Specialist [phone] Paradise Palafox . IRIS Care Team Information Receiv er [phone] Problems Active Problems Provider Date Type 2 [...] Medications SIG Qnty Indications Ordering Provider Date Rsvsrwfw83li/0.5ML Solution Pen-Inject inject weekly 6ml Ignacio West M.D. 10/29/2023 Lehxwwfsy71sc Tablets 1 tablet by mouth every day 90tabs Ignacio West M.D. 10/29/2023 Oykiftmaedym14vr/5GM (1%) Gel apply 1 packet to skin very morning 150gm Ignacio West M.D. 10/01/2023 Lisinopril-Hydrochlor fnqqfuqly19-58.5mg Tablets 1 by mouth every day 90Zoey Hogue. Haujpfdnp961tsz Tablets 1 by mouth every day 90taKenzi. CHICA Rhoades History Medications Rszsjlmstzwj32.25mg/Act (1.62%) Gel Apply 2 Packets Topically To Skin Once A Day Ignacio West M.D. 10/01/2023 - 10/01/2023 Trulicity1.5mg/0.5ML Solutio n Pen-Inject inject weekly 6ml Ignacio simon M.D. 06/07/2023 - 10/29/2023 Vcysnhjr51.5mg/0.5ML Solutio n Pen-Inject inject weekly 6ml Ignacio [...] 4.8-5.6 3 Urinalysis, Complete 01/08/2024 [facility] [place] 1.013 1.005-1.03 0 pH 7.5 5.0-7.5 Urine-Color [...] Hemoglobin A1c 6.3% Basic Metabolic Panel 01/29/2023 [facility] Glucose 118 mg/dL High (70-99) BUN 13 mg/dL (6-20) Creatinine 0.7 mg/dL (0.7-1.2) Sodium 137 mmol/L (133-145) Potassium 4.5 mmol/L (3.6-5.2) Chloride 99 mmol/L (98-107) Bicarbonate 28 mmol/L (22-29) Anion Gap 10 (4-17) Calcium 9.6 mg/dL (8.6-10.5) Estimated GFR Creatinine 113 ML/MIN/1.7 3M2 6 Lipid Panel 01/29/2023 [facility] Cholesterol, Total 133 mg/dL (<200) Triglyceride 112 mg/dL (<150) HDL Chol 37 mg/dL Low (>39) LDL Cholesterol, Calculated 74 mg/dL (0-130) Non HDL Cholesterol (Calc) 96 mg/dL (<160) Urinalysis Complete 01/29/2023 [facility] Appear/Color YELLOW 7 SP. [place] 1.028 (1.002-1.0 30) Urine PH 6.5 (5.0-8.0) Urine Albumin TRACE Abnormal (Neg) Urine Glucose NEGATIVE (Neg) Urine Ketones NEGATIVE (Neg) Urine Bilirubin NEGATIVE (Neg) Urine Hemoglobin NEGATIVE (Neg) Urine Nitrite NEGATIVE (Neg) Urine Leukocyte NEGATIVE (Neg) Urobilinogen NORMAL mg/dL (Norm) Urine WBCs 1 /HPF (0-5) Urine RBCs 1 /HPF (0-3) Mucus SLIGHT /LPF Laboratory test finding 01/29/2023 [facility] Hemoglobin A1c 6.0 % High (4.0-5.6) 8 Complete Abc With Diff 01/29/2023 [facility] WBC 9.3 K/MM3 (4.0-11.0) [...] K/MM3 (1.3-7.0) Lymph # 3.0 K/MM3 (0.8-3.1) [place]# 0.8 K/MM3 (0.4-1.3) Eo # 0.1 K/MM3 [...] Hemoglobin A1c 5.8% Laboratory test finding 05/22/2022 [facility] Testosterone 304 ng/dL (280-800) Laboratory test finding 05/08/2022 [facility] Testosterone Total (Males > 15 Yrs) <pending> Laboratory test finding 05/08/2022 Inhouse Glucose Fingerstick 126 Hemoglobin A1c 6.0 Laboratory test finding 02/07/2022 [facility] Cortisol 4.7 g /dL 10 Laboratory test finding 02/06/2022 [facility] Cortisol <pending> Laboratory test finding 02/06/2022 Inhouse Glucose Fingerstick 135 Laboratory test finding 02/02/2022 [facility] Cortisol 3.6 g /dL 11 Laboratory test finding 01/12/2022 [facility] Cortisol <pending> Comprehensive Metabolic Panl 01/09/2022 [facility] Glucose 104 mg/dL High [...] 117 ML/MIN/1.7 3M2 12 Lipid Panel 01/09/2022 [facility] Cholesterol, Total 151 mg/dL (<200) Triglyceride 196 mg/dL High (<150) HDL Chol 32 mg/dL Low (>39) LDL Cholesterol, Calculated 80 mg/dL (0-130) Non HDL Cholesterol (Calc) 119 mg/dL (<160) Urinalysis Complete 01/09/2022 [facility] Appear/Color YELLOW 13 SP. [place] 1.019 (1.002-1.0 30) Urine PH 6.0 (5.0-8.0) Urine Albumin NEGATIVE (Neg) Urine Glucose NEGATIVE (Neg) Urine Ketones NEGATIVE (Neg) Urine Bilirubin NEGATIVE (Neg) Urine Hemoglobin NEGATIVE (Neg) Urine Nitrite NEGATIVE (Neg) Urine Leukocyte NEGATIVE (Neg) Urobilinogen NORMAL mg/dL (Norm) Urine WBCs 1 /HPF (0-5) Urine RBCs 1 /HPF (0-3) Mucus SLIGHT /LPF Squamous Epith <1 /HPF (0-8) Complete Abc With Diff 01/09/2022 [facility] WBC 8.6 K/MM3 (4.0-11.0) [...] K/MM3 (1.3-7.0) Lymph # 2.7 K/MM3 (0.8-3.1) [place]# 0.6 K/MM3 (0.4-1.3) Eo # 0.2 K/MM3 (0.0-0.4) Baso # 0.1 K/MM3 (0.0-0.1) Abs. Imm Gran 0.0 K/MM3 Neut 58.0 % (44-76) Lymph 31.8 % (15-43) Monocyte 6.9 % (4.5-10.5) Eo 2.2 % (0-6) Baso 0.6 % (0-2) Imm Gran 0.5 % Laboratory test finding 01/09/2022 [facility] TSH 2.05 uIU/mL (0.4-4.2) Free T4 1.27 ng/dL (0.70-1.80 ) Urinary Microalbumin 01/09/2022 [facility] Micro-Albumin 24.2 mg/L High (<20) 14 Malb/Creat Ratio 19.1 MG/GM (0-20) Urine Creat For Micro Albumin 126.4 mg/dL Laboratory test finding 01/09/2022 [facility] Prolactin 10.8 NG/ML (4.0-15.2) FSH 0.8 MIU/ML Low (1.5-12.4) 15 LH 0.5 MIU/ML Low (1.5-12.4) 16 Testosterone 554 ng/dL (280-800) Anti Thyroid Peroxidase AB <3.0 IU/mL (<5.6) 17 Cortisol 5.0 g /dL 18 1 Adult male reference interval is based on a population of healthy nonobese males (BMI <30) between 19 and 39 years old. Jimmy, et.al. JCEM 2017,102;2185-5889. PMID: 34225187. 2 Normal: 0 - 29 Moderately increased: [...] with health care provider. DIAGNOSTIC USE: The [place] Diabetes Association (ADA) and the World Health [...] presentation. This test was performed on the [employer] immunoassay system. 18 Reference Range: 6-10 am: 6.0-18.4 ug/dL 4-8 pm: 2.7-10.5 ug/dL Procedures Date Code Description Status 08/25/2022 [id number] Additional suppl ies, materials, staff time over and above usual Completed 05/08/2022 [id number] Additional suppl ies, materials, staff time over and above usual Completed 02/06/2022 [id number] Additional suppl ies, materials, staff time over and above usual Completed 12/23/2021 [id number] Additional suppl ies, materials, staff time over and above usual Completed Medical Devices Description No Information Available Encounters Type Date Location Provider Dx Diagnosis Office Visit 02/11/2024 1:30p Main Office Ignacio Wset M.D. E11.9 Type 2 diabetes mellitus without [...]
== END 2024-04-24 14:55 | disposition home or self-care (01) ==
PROVIDERS: PCP Physician Assistant Medical; Visit Provider Nurse Practitioner Family
DX: J06.9 Acute upper respiratory infection, unspecified (principal); R05.1 Acute cough

== ENCOUNTER 2024-04-24 13:57 | Outpatient (REF) | payer OTHER, SELFPAY ==
--- OUTSIDE RECORDS SUMMARY | 2024-04-24 17:18 | XMS_ITS | Continuity of Care Document ---
Author Organization [facility] Address [address] [place] [address] Phone [phone] Care Team Providers Care Community Center Director Name Role Phone Zoey Bhandari. Care Team Information Wet End Tester [phone] Paradise Palafox . IRIS Care Team Information Receiv er [phone] Problems Active Problems Provider Date Type 2 [...] Medications SIG Qnty Indications Ordering Provider Date Ewbcokcg03ic/0.5ML Solution Pen-Inject inject weekly 6ml Ignacio West M.D. 10/29/2023 Rmklmuwrk90us Tablets 1 tablet by mouth every day 90tabs Ignacio West M.D. 10/29/2023 Uvlbftwpnfgg81cg/5GM (1%) Gel apply 1 packet to skin very morning 150gm Ignacio West M.D. 10/01/2023 Lisinopril-Hydrochlor xtoorhgmb36-04.5mg Tablets 1 by mouth every day 90Zoey Hogue. Btjweyrsm629htr Tablets 1 by mouth every day 90taKenzi. CHICA Rhoades History Medications Wyyhvmojqokw17.25mg/Act (1.62%) Gel Apply 2 Packets Topically To Skin Once A Day Ignacio West M.D. 10/01/2023 - 10/01/2023 Trulicity1.5mg/0.5ML Solutio n Pen-Inject inject weekly 6ml Ignacio simon M.D. 06/07/2023 - 10/29/2023 Smpzqujn58.5mg/0.5ML Solutio n Pen-Inject inject weekly 6ml Ignacio [...] 4.8-5.6 3 Urinalysis, Complete 01/08/2024 [facility] [place] 1.013 1.005-1.03 0 pH 7.5 5.0-7.5 Urine-Color [...] Hemoglobin A1c 6.3% Basic Metabolic Panel 01/29/2023 [facility] Glucose 118 mg/dL High (70-99) BUN 13 mg/dL (6-20) Creatinine 0.7 mg/dL (0.7-1.2) Sodium 137 mmol/L (133-145) Potassium 4.5 mmol/L (3.6-5.2) Chloride 99 mmol/L (98-107) Bicarbonate 28 mmol/L (22-29) Anion Gap 10 (4-17) Calcium 9.6 mg/dL (8.6-10.5) Estimated GFR Creatinine 113 ML/MIN/1.7 3M2 6 Lipid Panel 01/29/2023 [facility] Cholesterol, Total 133 mg/dL (<200) Triglyceride 112 mg/dL (<150) HDL Chol 37 mg/dL Low (>39) LDL Cholesterol, Calculated 74 mg/dL (0-130) Non HDL Cholesterol (Calc) 96 mg/dL (<160) Urinalysis Complete 01/29/2023 [facility] Appear/Color YELLOW 7 SP. [place] 1.028 (1.002-1.0 30) Urine PH 6.5 (5.0-8.0) Urine Albumin TRACE Abnormal (Neg) Urine Glucose NEGATIVE (Neg) Urine Ketones NEGATIVE (Neg) Urine Bilirubin NEGATIVE (Neg) Urine Hemoglobin NEGATIVE (Neg) Urine Nitrite NEGATIVE (Neg) Urine Leukocyte NEGATIVE (Neg) Urobilinogen NORMAL mg/dL (Norm) Urine WBCs 1 /HPF (0-5) Urine RBCs 1 /HPF (0-3) Mucus SLIGHT /LPF Laboratory test finding 01/29/2023 [facility] Hemoglobin A1c 6.0 % High (4.0-5.6) 8 Complete Abc With Diff 01/29/2023 [facility] WBC 9.3 K/MM3 (4.0-11.0) [...] K/MM3 (1.3-7.0) Lymph # 3.0 K/MM3 (0.8-3.1) [place]# 0.8 K/MM3 (0.4-1.3) Eo # 0.1 K/MM3 [...] Hemoglobin A1c 5.8% Laboratory test finding 05/22/2022 [facility] Testosterone 304 ng/dL (280-800) Laboratory test finding 05/08/2022 [facility] Testosterone Total (Males > 15 Yrs) <pending> Laboratory test finding 05/08/2022 Inhouse Glucose Fingerstick 126 Hemoglobin A1c 6.0 Laboratory test finding 02/07/2022 [facility] Cortisol 4.7 g /dL 10 Laboratory test finding 02/06/2022 [facility] Cortisol <pending> Laboratory test finding 02/06/2022 Inhouse Glucose Fingerstick 135 Laboratory test finding 02/02/2022 [facility] Cortisol 3.6 g /dL 11 Laboratory test finding 01/12/2022 [facility] Cortisol <pending> Comprehensive Metabolic Panl 01/09/2022 [facility] Glucose 104 mg/dL High [...] 117 ML/MIN/1.7 3M2 12 Lipid Panel 01/09/2022 [facility] Cholesterol, Total 151 mg/dL (<200) Triglyceride 196 mg/dL High (<150) HDL Chol 32 mg/dL Low (>39) LDL Cholesterol, Calculated 80 mg/dL (0-130) Non HDL Cholesterol (Calc) 119 mg/dL (<160) Urinalysis Complete 01/09/2022 [facility] Appear/Color YELLOW 13 SP. [place] 1.019 (1.002-1.0 30) Urine PH 6.0 (5.0-8.0) Urine Albumin NEGATIVE (Neg) Urine Glucose NEGATIVE (Neg) Urine Ketones NEGATIVE (Neg) Urine Bilirubin NEGATIVE (Neg) Urine Hemoglobin NEGATIVE (Neg) Urine Nitrite NEGATIVE (Neg) Urine Leukocyte NEGATIVE (Neg) Urobilinogen NORMAL mg/dL (Norm) Urine WBCs 1 /HPF (0-5) Urine RBCs 1 /HPF (0-3) Mucus SLIGHT /LPF Squamous Epith <1 /HPF (0-8) Complete Abc With Diff 01/09/2022 [facility] WBC 8.6 K/MM3 (4.0-11.0) [...] K/MM3 (1.3-7.0) Lymph # 2.7 K/MM3 (0.8-3.1) [place]# 0.6 K/MM3 (0.4-1.3) Eo # 0.2 K/MM3 (0.0-0.4) Baso # 0.1 K/MM3 (0.0-0.1) Abs. Imm Gran 0.0 K/MM3 Neut 58.0 % (44-76) Lymph 31.8 % (15-43) Monocyte 6.9 % (4.5-10.5) Eo 2.2 % (0-6) Baso 0.6 % (0-2) Imm Gran 0.5 % Laboratory test finding 01/09/2022 [facility] TSH 2.05 uIU/mL (0.4-4.2) Free T4 1.27 ng/dL (0.70-1.80 ) Urinary Microalbumin 01/09/2022 [facility] Micro-Albumin 24.2 mg/L High (<20) 14 Malb/Creat Ratio 19.1 MG/GM (0-20) Urine Creat For Micro Albumin 126.4 mg/dL Laboratory test finding 01/09/2022 [facility] Prolactin 10.8 NG/ML (4.0-15.2) FSH 0.8 MIU/ML Low (1.5-12.4) 15 LH 0.5 MIU/ML Low (1.5-12.4) 16 Testosterone 554 ng/dL (280-800) Anti Thyroid Peroxidase AB <3.0 IU/mL (<5.6) 17 Cortisol 5.0 g /dL 18 1 Adult male reference interval is based on a population of healthy nonobese males (BMI <30) between 19 and 39 years old. Jimmy, et.al. JCEM 2017,102;4087-7806. PMID: 70716010. 2 Normal: 0 - 29 Moderately increased: [...] with health care provider. DIAGNOSTIC USE: The [place] Diabetes Association (ADA) and the World Health [...] presentation. This test was performed on the [employer] immunoassay system. 18 Reference Range: 6-10 am: 6.0-18.4 ug/dL 4-8 pm: 2.7-10.5 ug/dL Procedures Date Code Description Status 08/25/2022 79602 Additional suppl ies, materials, staff time over and above usual Completed 05/08/2022 [id number] Additional suppl ies, materials, staff time over and above usual Completed 02/06/2022 [id number] Additional suppl ies, materials, staff time over and above usual Completed 12/23/2021 [id number] Additional suppl ies, materials, staff time over [...]
[2024-04-24 17:32] LABS: Influenza A PCR POSITIVE (Negative); Influenza B PCR NEGATIVE (Negative); Resp Syncy Virus RNA Qual PCR NEGATIVE (Negative); SARS COV2 PCR INHOUSE NEGATIVE (Negative)
== END 2024-04-24 13:58 | disposition home or self-care (01) ==
LOC: HO.LNP 13:57
PROVIDERS: PCP Physician Assistant Medical; Visit Provider Nurse Practitioner Family
DX: J06.9 Acute upper respiratory infection, unspecified (principal); R05.1 Acute cough
CPT/HCPCS: 0241U

== ENCOUNTER 2024-09-11 14:34 | Outpatient (AMB) | payer OTHER, SELFPAY ==
--- NOTE | 2024-09-11 14:36 | MHC.PC.OV ---
Vital Signs 09/11/24 14:54 Height 5 ft 3 in Weight 199 lb 3 oz BMI 35.3 BP 116/68 Blood Pressure Location Rt brachial Position Sitting Respiration 14 Pulse 76 Pulse Source Pulse Oximeter Temp 98.5 F Temp Source Temporal Artery Scan Pulse Oximetry (%) 96 Oxygen Delivery Method Room Air Intake Visit Reasons: 6 M FU Intake Note: Darwin presents in the office today for a 6 month follow up. Allergies codeine Adverse Reaction (Unknown, Verified 09/11/24 14:51) Unknown Medication List - Last Reconciled 09/11/24 by IRIS Reyes azelastine intranasal duloxetine 30 mg PO DAILY empagliflozin (Jardiance) 10 mg PO DAILY gabapentin 300 mg PO TID PRN hydrocodone-acetaminophen 5-325 mg 1 tab PO BID PRN levocetirizine 5 mg PO DAILY levothyroxine 150 mcg PO DAILY lisinopril-hydrochlorothiazide 20-12.5 mg 1 tab PO DAILY risankizumab-rzaa 150 mg subcut Q12W rosuvastatin 10 mg PO BEDTIME testosterone 30 mg/actuation (1.5 mL) 3 pumps topical DAILY tirzepatide 15 mg subcut QWEEK Tobacco use date assessed: 09/11/24 Dental Screening Dental Screen Date: 09/11/24 Did you have a dental visit in the last 12 months?: Yes Did you have a dental problem in the last 6 months where you did not have access to dental care?: No Was dental information given to patient?: Patient has dentist HPI HPI Comments History of Present Illness Details This is a 48-year-old male with a past medical history of low testosterone, severe obesity, hypertension, type 2 diabetes and psoriatic arthritis and osteoarthritis presenting for follow up. Type 2 diabetes, obesity, low testosterone-followed by endocrinology, Dr. Edge His last hemoglobin A1c was 6.0%, per patient. He is compliant with medications. He has weight loss on Mounjaro. He is on rosuvastatin. Psoriatic arthritis-followed by [facility], Reta Ley. Taking Skyrizi. Right hip pain-he had an x-ray that showed severe osteoarthritis. He is followed at [facility]. He gets cortisone injections every 3 months. He is starting physical therapy again. He will need a hip replacement, but he has to lose more weight. He is working on this. He is following a low-carbohydrate diet and using protein shakes. He is also on Mounjaro. Defers referral. He takes Tylenol as needed, but the pain has been bothering him more. It in PACS the quality of his life and his sleep. It causes stress and makes him feel unhappy. Gabapentin ineffective. Hypertension, microalbuminuria-compliant with hydrochlorothiazide-lisinopril. Blood pressure is controlled. Nonsmoker. Does not drink alcohol. Patient up-to-date with flu and COVID-19 vaccines through the pharmacy. 12/11/2019 Tdap Received PPSV23 in 2013. Eye exam up-to-date. No diabetic retinopathy. Colonoscopy was done at [facility] in 2023. Patient was advised to repeat this in 10 years. ROS: Constitutional: No unexplained weight loss, fever, chills, fatigue or night sweats. Respiratory: No shortness of breath, cough or sputum production. Cardiovascular: No chest pain, chest pressure or chest discomfort. No palpitations. Gastrointestinal: No anorexia, nausea, vomiting or diarrhea. No abdominal pain or blood in stool. Neurologic: No headache, dizziness, syncope, unilateral weakness, ataxia, numbness or tingling in the extremities. Musculoskeletal: See HPI Endocrine: No cold or heat intolerance. No polyuria or polydipsia. Psychiatric: See HPI. Denies SI/HI Physical exam: Constitutional: Alert, in no distress. Neck: Supple, Full range of motion. No lymphadenopathy. No palpable thyroid masses. Respiratory: Clear to auscultation. Cardiovascular: S1 S2 regular. No murmurs. Extremities: Warm and well perfused. 1+ bilateral lower extremity edema. Psychiatric: Normal mood and affect [facility] Medical History (Updated 04/24/24 @ 14:59 by Kylah Cantu NP) Cough Acute respiratory disease Osteoarthritis of right hip Class 3 obesity Morbid obesity Allergic rhinitis Microalbuminuria Right hip pain Essential hypertension Low testosterone Type II diabetes mellitus Hypothyroidism Diabetes mellitus Dyslipidemia Hypertension Psoriasis Surgical History H/O wisdom tooth extraction Hx of adenoidectomy Family History Father Psoriatic arthritis Social History (Updated 09/11/24 @ 14:53 by Kimberlee Edmond MA) Household Members: Spouse Housing: House Alcohol intake: never Patient Tobacco Use Status: Never used Tobacco e-Cigarette/Vaping Use: Never Used Second Hand Smoke Exposure: No service: No Current occupational status: employed 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 Current occupational exposures/hazards: No Cognitive needs: No Hearing needs: No Vision needs: Yes Questionnaire Thrive Questionnaire Date Thrive assessed: 03/06/24 I am a: Patient What is your living situation today?: I have a steady place to live Within the past 12 months, did the food you bought not last and you didn't have the money to get more?: Never true Within the past 12 months, did you worry whether your food would run out before you got money to buy more?: Never true Do you have trouble paying for medicines?: No Do you have trouble getting transportation to medical appointments?: No Do you have trouble paying your heating and electricity bill?: No Do you have trouble taking care of your child, family member or friend?: No Do you have trouble with day-to-day activities such as bathing, preparing meals, shopping, managing finances, etc.?: No Are you currently unemployed and looking for a job?: No Are you interested in more education?: No Please select the resources that you would like help with: None Currently or been in a relationship where the following occur: No concerns reported THRIVE Score: 0 AUDIT C Alcohol Use Questionnaire (AUDIT-C) 2. How many drinks containing alcohol do you have on a typical day when you are drinking?: 1 or 2 Total Score: 0 LUIS-7 AMB Questionnaire LUIS-7 Date LUIS - 7 assessed: 04/13/24 Source: Developed by Drs. Ge Downs, Mary Dunn, Aric Lugo and colleagues, with an educational lorenza from [employer]. Physical exam (Primary Care) Vital Signs: Last Vital Signs Temp 98.5 F 09/11/24 14:54 Pulse 76 09/11/24 14:54 Resp 14 09/11/24 14:54 BP 116/68 09/11/24 14:54 Pulse Ox 96 09/11/24 14:54 Oxygen Delivery Method Room Air 09/11/24 14:54 BMI result Body Mass Index 35.3 Tobacco/Smoking Status: Tobacco use Status Tobacco use date assessed 09/11/24 09/11/24 14:56 Patient Tobacco Use Status Never used Tobacco 09/11/24 14:53 e-Cigarette/Vaping Use Never Used 09/11/24 14:53 Thrive Assessment: Date of Thrive Assessment Date Thrive assessed 03/06/24 09/11/24 14:38 Currently or been in a relationship where the following occur: No concerns reported Coding Level of Care Code Est Pt Level 4 (22669) Complex EM visit Add On G2211 Diagnoses Essential hypertension I10 Type 2 diabetes mellitus with diabetic microalbuminuria, without long-term current use of insulin E11.29; R80.9 Diabetes mellitus channel specialist insulin use: without residential use Diabetes mellitus complication status: with kidney complications Diabetes mellitus complication detail: with diabetic microalbuminuria Acquired hypothyroidism E03.9 Hypothyroidism type: acquired Microalbuminuria R80.9 Osteoarthritis of right hip M16.11 Morbid obesity E66.01 Assessment & Plan Assessment & Plan (1) Essential hypertension: Code(s): I10 - Essential (primary) hypertension Category: Medical Plan: Well-controlled. Continue low-sodium diet and avoidance of caffeine. Continue lisinopril-hydrochlorothiazide 20-12.5 mg. (2) Type II diabetes mellitus: Code(s): E11.9 - Type 2 diabetes mellitus without complications Category: Medical Qualifiers: Diabetes mellitus channel specialist insulin use: without channel specialist use Diabetes mellitus complication status: with kidney complications Diabetes mellitus complication detail: with diabetic microalbuminuria Qualified Code(s): E11.29 - Type 2 diabetes mellitus with other diabetic kidney complication; R80.9 - Proteinuria, unspecified Plan: Historically well-controlled. Continue current medications. Followed by endocrinology. Ordered labs. Limit portion sizes. Follow up low carbohydrate, low sugar diet. (3) Hypothyroidism: Code(s): E03.9 - Hypothyroidism, unspecified Category: Medical Qualifiers: Hypothyroidism type: acquired Qualified Code(s): E03.9 - Hypothyroidism, unspecified Plan: Continue levothyroxine. Check TSH. (4) Microalbuminuria: Code(s): R80.9 - Proteinuria, unspecified Category: Medical Plan: Continue BIBI inhibitor. Avoid nephrotoxic medications. (5) Osteoarthritis of right hip: Code(s): M16.11 - Unilateral primary osteoarthritis, right hip Category: Medical Plan: Followed by Orthopedics. He receives cortisone injections every 3 months. He will need a hip replacement, but yes to lose more weight. Trial of duloxetine 30 mg daily. Black box warning and side effects reviewed. I will give him a limited supply of hydrocodone-acetaminophen to take for severe pain during the month. Advised this is a habit-forming controlled substance. Do not drive or operate heavy machinery or drink alcohol with the medication. He understands the risks of the medicine. (6) Morbid obesity: Code(s): E66.01 - Morbid (severe) obesity due to excess calories Category: Medical Plan: Continue efforts at weight loss. He is on the maximum dose of Mounjaro. Plan He declined follow up for med check in a month, but he agreed to update me via the portal about the efficacy of the medications prescribed. He will follow up in 3 months. Orders: Orders Vitamin D 25-OH (D2 and D3) 09/11/24 E03.9 - Hypothyroidism, unspecified, E11.29 - Type 2 diabetes mellitus with other diabetic kidney complication, E66.813 - Obesity, class 3, I10 - Essential (primary) hypertension, R80.9 - Proteinuria, unspecified Comprehensive Met. Panel 09/11/24 E03.9 - Hypothyroidism, unspecified, E11.29 - Type 2 diabetes mellitus with other diabetic kidney complication, E66.813 - Obesity, class 3, I10 - Essential (primary) hypertension, R80.9 - Proteinuria, unspecified Lipid Panel 09/11/24 E03.9 - Hypothyroidism, unspecified, E11.29 - Type 2 diabetes mellitus with other diabetic kidney complication, E66.813 - Obesity, class 3, E78.5 - Hyperlipidemia, unspecified, I10 - Essential (primary) hypertension, R80.9 - Proteinuria, unspecified Microalbumin, Random (w Creat) 09/11/24 E03.9 - Hypothyroidism, unspecified, E11.9 - Type 2 diabetes mellitus without complications, E66.813 - Obesity, class 3, I10 - Essential (primary) hypertension Hemoglobin A1c 09/11/24 E03.9 - Hypothyroidism, unspecified, E11.29 - Type 2 diabetes mellitus with other diabetic kidney complication, E11.9 - Type 2 diabetes mellitus without complications, E66.813 - Obesity, class 3, I10 - Essential (primary) hypertension, R80.9 - Proteinuria, unspecified TSH reflex Free T4 09/11/24 E03.9 - Hypothyroidism, unspecified, E11.29 - Type 2 diabetes mellitus with other diabetic kidney complication, E66.813 - Obesity, class 3, I10 - Essential (primary) hypertension, R80.9 - Proteinuria, unspecified Prostate Specific Antigen 09/11/24 Z12.5 - Encounter for screening for malignant neoplasm of prostate Medications: New duloxetine 30 mg PO DAILY 90 caps 0RF hydrocodone-acetaminophen 5-325 mg Partial Fill upon patient request. 1 tab PO BID PRN 10 tabs 0RF pain Discontinued gabapentin Discontinued Reason: Doctor's Order 300 mg PO TID PRN
[2024-09-11 14:54] VITALS: BP 116/68; PULSE 76; RESP 14; TEMP 36.9; O2SAT 96; BMI 35.3
--- OUTSIDE RECORDS SUMMARY | 2024-09-11 15:51 | XMS_ITS | Continuity of Care Document ---
Author Organization [facility] Address [address] [place] [address] Phone [phone] Care Team Providers Care Loom Fixer Name Role Phone Zoey Bhandari. Care Team Information Hydraulic Repairer [phone] Paradise Palafox . IRIS Care Team Information Receiv er [phone] Problems Active Problems Provider Date Type 2 diabetes mellitus Ignacio West M.D. Onset: 12/23/2021 Essential hypertension Ignacio West M.D. O nset: 12/23/2021 Obesity Ignacio West M.D. Onset: 1 Hypogonadotropic hypogonadism Ignacio West M.D. Onset: 05/08/2022 Hypothyroidism Ignacio West M.D. Onset: 0 05/08/2022 Psoriasis Ignacio West M.D. Onset: 0 08/25/2022 Social History Type Date Description Comments Sex Male Sex Unknown Tobacco Use Start: Unknown Never Smoked Cigarettes ETOH Use Occasionally consumes wine Allergies and adverse reactions Active Allergies Criticality Reaction Severity Comments Date Codeine Unable to assess criticality 12/23/2021 Medications Active Medications SIG Qnty Indications Ordering Provider Date Gabapentin (Once-Daily)300mg Tablets take 1 capsule by mouth twice a day Ignacio West M.D. 08/17/2024 Bywpuetl11qc/0.5ML Solution Pen-Inject inject weekly 6ml Ignacio West M.D. 10/29/2023 Mrdwekoef88ek Tablets 1 tablet by mouth every day 90tabs Ignacio West M.D. 10/29/2023 Rvvdchwzuqai87cs/5GM (1%) Gel apply 1 packet to skin very morning 150gm Ignacio West M.D. 10/01/2023 Lisinopril-Hydrochlor qburaduvv83-32.5mg Tablets 1 by mouth every day 90taKenzi. CHICA Rhoades Fculhkyfw244nes Tablets 1 tablet by mouth every day 90Kenzi. CHICA Hogue History Medications [id number] Capsules take 1 capsule by mouth twice a day 180caps Ignacio West M.D. 08/17/2024 - 08/17/2024 Xmipgwicaryp16.25mg/Ac t (1.62%) Gel Apply 2 Packets Topically To Skin Once A Day Ignacio West M.D. 10/01/2023 - 10/01/2023 Vital Signs Date Vital Result Comment 08/17/2024 8:02am BP Systolic 130 mmHg BP Diastolic 86 mmHg Heart Rate 72 /min Height 63 inches 5'3 Weight 300.25 lb BMI (Body Mass Index) 53.2 kg/m2 Results Test Acquired Date Facility Test Result H/L Range Note Hemoglobin A1c 08/17/2024 Inhouse Hemoglobin A1c 5.9% Glucose Fingerstick 08/17/2024 Inhouse Glucose Fingerstick 117 Glucose Fingerstick 02/11/2024 Inhouse Glucose Fingerstick 115 Comp. Metabolic [...] IU/L 0-40 Alt (SGPT) 27 IU/L 0-44 Lipid Panel 01/08/2024 [facility] Cholesterol, Total 123 mg/dL 100-199 Triglycerides 158 mg/dL High 0-149 HDL Cholesterol 33 mg/dL Low >39 VLDL Cholesterol Sergo 27 mg/dL 5-40 LDL Chol Calc (Nih) 63 mg/dL 0-99 LDL Calc Comment: TNP Urinalysis, Complete 01/08/2024 [facility] Specific Emmons 1.013 1.005-1.03 0 pH 7.5 5.0-7.5 Urine-Color Yellow Yellow Appearance Clear Clear WBC Esterase Negative Negative Protein Negative Negative/T race Glucose 3+ Abnormal Negative Ketones Negative Negative Occult Blood Negative Negative Bilirubin Negative Negative Urobilinogen,Se mi-Qn 0.2 mg/dL 0.2-1.0 Nitrite, Urine Negative Negative Microscopic Examination See Comment: 1 Microscopic Examination See below: 2 WBC None seen /hpf 0 - 5 RBC None seen /hpf 0 - 2 Epithelial Cells (non renal) None seen /hpf 0 - 10 Epithelial Cells (renal) TNP Casts None seen /lpf None seen Cast Type TNP Crystals TNP Crystal Type TNP Mucus Threads TNP Bacteria None seen None seen/Few Yeast TNP Trichomonas TNP Comment TNP Hemoglobin A1c 01/08/2024 [facility] Hemoglobin A1c 6.0 % High 4.8-5.6 3 CBC With Differential/Pl atelet 01/08/2024 [facility] WBC [...] x10E3/uL 0.0-0.1 NRBC TNP Hematology Comments: TNP TSH+Free T4 01/08/2024 [facility] TSH 1.020 uIU/mL 0.450-4.50 0 T4,Free(Direct) 1.47 ng/dL 0.82- 1.77 Albumin/Creatin ine Ratio, Random Urine 01/08/2024 [facility] Albumin, Urine 4.8 ug/mL Not Estab. Creatinine, Urine 34.7 mg/dL Not Estab. Alb/Creat Ratio 14 mg/gcreat 0-29 4 Testosterone 01/08/2024 [facility] Testosterone 791 ng/dL 264-916 5 Glucose Fingerstick 10/29/2023 Inhouse Glucose Fingerstick 145 Hemoglobin A1c 10/29/2023 Inhouse Hemoglobin A1c 6.0% Glucose Fingerstick 05/21/2023 Inhouse Glucose Fingerstick 97 Hemoglobin A1c 05/21/2023 Inhouse Hemoglobin A1c 6.3% Basic Metabolic Panel 01/29/2023 [facility] Glucose 118 mg/dL High (70-99) BUN 13 mg/dL (6-20) Creatinine 0.7 mg/dL (0.7-1.2) Sodium 137 mmol/L (133-145) Potassium 4.5 mmol/L (3.6-5.2) Chloride 99 mmol/L (98-107) Bicarbonate 28 mmol/L (22-29) Anion Gap 10 (4-17) Calcium 9.6 mg/dL (8.6-10.5) Estimated GFR Creatinine 113 ML/MIN/1.7 3M2 6 Lipid Panel 01/29/2023 [facility] Cholesterol, Total 133 mg/dL (<200) Triglyceride 112 mg/dL (<150) HDL Chol 37 mg/dL Low (>39) LDL Cholesterol, Calculated 74 mg/dL (0-130) Non HDL Cholesterol (Calc) 96 mg/dL (<160) Urinalysis Complete 01/29/2023 [facility] Appear/Color YELLOW 7 SP. Emmons 1.028 (1.002-1.0 30) Urine PH 6.5 (5.0-8.0) Urine Albumin TRACE Abnormal (Neg) Urine Glucose NEGATIVE (Neg) Urine Ketones NEGATIVE (Neg) Urine Bilirubin NEGATIVE (Neg) Urine Hemoglobin NEGATIVE (Neg) Urine Nitrite NEGATIVE (Neg) Urine Leukocyte NEGATIVE (Neg) Urobilinogen NORMAL mg/dL (Norm) Urine WBCs 1 /HPF (0-5) Urine RBCs 1 /HPF (0-3) Mucus SLIGHT /LPF Hemoglobin A1c 01/29/2023 [facility] Hemoglobin A1c 6.0 % High (4.0-5.6) 8 Complete Abc With Diff 01/29/2023 [facility] WBC 9.3 K/MM3 (4.0-11.0) [...] K/MM3 (1.3-7.0) Lymph # 3.0 K/MM3 (0.8-3.1) Whitman# 0.8 K/MM3 (0.4-1.3) Eo # 0.1 K/MM3 (0.0-0.4) Baso # 0.1 K/MM3 (0.0-0.1) Abs. Imm Gran 0.0 K/MM3 Neut 57.8 % (44-76) Lymph 32.0 % (15-43) Monocyte 8.2 % (4.5-10.5) Eo 1.1 % (0-6) Baso 0.5 % (0-2) Imm Gran 0.4 % PSA 01/29/2023 [facility] PSA 0.1 NG/ML (0-4) 9 TSH With Reflex To FT4 01/29/2023 [facility] TSH With Reflex To FT4 1.67 uIU/mL (0.4-4.2) 25Oh Vitamin D 01/29/2023 [facility] 25Oh Vitamin D 45.4 NG/ML (20-50) Testosterone 01/29/2023 [facility] Testosterone 500 ng/dL (280-800) Hemoglobin A1c 11/27/2022 Inhouse Hemoglobin A1c 5.8% Glucose Fingerstick 11/27/2022 Inhouse Glucose Fingerstick 94 Glucose Fingerstick 08/25/2022 Inhouse Glucose Fingerstick 99 Hemoglobin A1c 08/25/2022 Inhouse Hemoglobin A1c 5.8% Testosterone 05/22/2022 [facility] Testosterone 304 ng/dL (280-800) Testosterone Total (Males > 15 Yrs) 05/08/2022 [facility] Testosterone Total (Males > 15 Yrs) <pending> Glucose Fingerstick 05/08/2022 Inhouse Glucose Fingerstick 126 Hemoglobin A1c 05/08/2022 Inhouse Hemoglobin A1c 6.0 Cortisol 02/07/2022 [facility] Cortisol 4.7 g/dL 10 Glucose Fingerstick 02/06/2022 Inhouse Glucose Fingerstick 135 Cortisol 02/06/2022 [facility] Cortisol <pending> Cortisol 02/02/2022 [facility] Cortisol 3.6 g/dL 11 Cortisol 01/12/2022 [facility] Cortisol <pending> Cortisol 01/09/2022 [facility] Cortisol 5.0 g/dL 12 Anti Thyroid Peroxidase AB 01/09/2022 [facility] Anti Thyroid Peroxidase AB <3.0 IU/mL (<5.6) 13 Testosterone 01/09/2022 [facility] Testosterone 554 ng/dL (280-800) LH 01/09/2022 [facility] LH 0.5 MIU/ML Low (1.5-12.4) 14 FSH 01/09/2022 [facility] FSH 0.8 MIU/ML Low (1.5-12.4) 15 Prolactin 01/09/2022 [facility] Prolactin 10.8 NG/ML (4.0-15.2) Urinary Microalbumin 01/09/2022 [facility] Micro-Albumin 24.2 mg/L High (<20) 16 Malb/Creat Ratio 19.1 MG/GM (0-20) Urine Creat For Micro Albumin 126.4 mg/dL Free T4 01/09/2022 [facility] Free T4 1.27 ng/dL (0.70-1.80 ) TSH 01/09/2022 [facility] TSH 2.05 uIU/mL (0.4-4.2) Complete Abc With Diff 01/09/2022 [facility] WBC 8.6 K/MM3 (4.0-11.0) [...] K/MM3 (1.3-7.0) Lymph # 2.7 K/MM3 (0.8-3.1) Whitman# 0.6 K/MM3 (0.4-1.3) Eo # 0.2 K/MM3 (0.0-0.4) Baso # 0.1 K/MM3 (0.0-0.1) Abs. Imm Gran 0.0 K/MM3 Neut 58.0 % (44-76) Lymph 31.8 % (15-43) Monocyte 6.9 % (4.5-10.5) Eo 2.2 % (0-6) Baso 0.6 % (0-2) Imm Gran 0.5 % Urinalysis Complete 01/09/2022 [facility] Appear/Color YELLOW 17 SP. Emmons 1.019 (1.002-1.0 30) Urine PH 6.0 (5.0-8.0) Urine Albumin NEGATIVE (Neg) Urine Glucose NEGATIVE (Neg) Urine Ketones NEGATIVE (Neg) Urine Bilirubin NEGATIVE (Neg) Urine Hemoglobin NEGATIVE (Neg) Urine Nitrite NEGATIVE (Neg) Urine Leukocyte NEGATIVE (Neg) Urobilinogen NORMAL mg/dL (Norm) Urine WBCs 1 /HPF (0-5) Urine RBCs 1 /HPF (0-3) Mucus SLIGHT /LPF Squamous Epith <1 /HPF (0-8) Lipid Panel 01/09/2022 [facility] Cholesterol, Total 151 mg/dL (<200) Triglyceride 196 mg/dL High (<150) HDL Chol 32 mg/dL Low (>39) LDL Cholesterol, Calculated 80 mg/dL (0-130) Non HDL Cholesterol (Calc) 119 mg/dL (<160) Comprehensive Metabolic Panl 01/09/2022 [facility] Glucose 104 mg/dL High [...] (0-41) Estimated GFR Creatinine 117 ML/MIN/1.7 3M2 18 1 Microscopic follows if indicated. 2 Microscopic was kathie cated and was performed. 3 Prediabetes: 5.7 - 6 .4 Diabetes: >6.4 Glycemic control for adults with diabetes: <7.0 4 Normal: 0 - 29 Moderately increased: 30 - 300 Severely increased: >300 5 Adult male reference interval is based on a population of healthy nonobese males (BMI <30) between 19 and 39 years old. Travison, et.al. JCEM 2017,102;6808-2830. PMID: [id number]. 6 Creatinine based est imated glomerular filtration (eGFR) in adults is calculated using the National Kidney Foundation recommended 2020 CKD-EPI equation. Estimates GFR from serum creatinine, age and sex. 7 CLEAR 8 MONITORING: In known diabetic patients, hemoglobin A1c targets should be discussed with health care provider. DIAGNOSTIC USE: The [place] Diabetes [employer] (ADA) and the World Health [...] 6.0-18.4 ug/dL 4-8 pm: 2.7-10.5 ug/dL 12 Reference Range: 6-10 am: 6.0-18.4 ug/dL 4-8 pm: 2.7-10.5 ug/dL 13 Antibody measurement represents one parameter in a multicriteria diagnostic process. Correlate results with clinical presentation. This test was performed on the [employer] immunoassay system. 14 Reference Range: Follicular: 2.4-12.6 mIU/mL Ovulation: 14.0-95.6 mIU/mL Luteal: 1.0-11.4 mIU/mL Postmenopausal: 7.7-58.5 mIU/mL 15 Reference Range: Follicular: 3.5-12.5 mIU/mL Ovulation: 4.7-21.5 mIU/mL Luteal: 1.7-7.7 mIU/mL Postmenopausal: 25.8-134.8 mIU/mL 16 The urine microalbum in test is designed to monitor renal function. When screening for Bence Craig proteinuria, urine electrophoresis is recommended. 17 CLEAR 18 Creatinine based est imated glomerular filtration (eGFR) in adults is calculated using the National Kidney Foundation recommended 2020 CKD-EPI equation. Estimates GFR from serum creatinine, age and sex. Procedures Date Code Description Status 08/25/2022 [id number] Additional suppl ies, materials, staff time over and above usual Completed 05/08/2022 [id number] Additional suppl ies, materials, staff time over and above usual Completed 02/06/2022 [id number] Additional suppl ies, materials, staff time over and above usual Completed 12/23/2021 [id number] Additional suppl ies, materials, staff time over and above usual Completed Medical Devices Description No Information Available Encounters Type Date Location Provider Dx Diagnosis Office Visit 08/17/2024 8:15a Main Office Ignacio West M.D. E11.9 Type 2 diabetes mellitus without complications E29.1 Testicular hypofunct ion Assessments Date Code Description Provider 08/17/2024 E11.9 Type 2 diabetes mellitus without complications Ignacio West M.D. 08/17/2024 E29.1 Hypogonadism Ignacio saavedra M.D. Plan of Treatment Future Appointment(s):* 01/10/2025 10:30 am - Ignacio West M.D. at Main Office 02/11/2024 - Ignacio West M.D.* E11.9 Type 2 diabetes mellitus without complications Functional Status Description No Information Available Mental Status Description No Information Available Referrals Description No Information Available
== END 2024-09-11 15:35 | disposition home or self-care (01) ==
LOC: HO.HMCFM 14:34
PROVIDERS: PCP Physician Assistant Medical; Visit Provider Physician Assistant Medical
DX: E11.29 Type 2 diabetes mellitus with other diabetic kidney complication (principal); E66.01 Morbid (severe) obesity due to excess calories; Z68.35 Body mass index [BMI] 35.0-35.9, adult; I10 Essential (primary) hypertension; R80.9 Proteinuria, unspecified; E03.9 Hypothyroidism, unspecified; M16.11 Unilateral primary osteoarthritis, right hip

== ENCOUNTER 2024-09-22 08:32 | Outpatient (REF) | payer OTHER, SELFPAY ==
--- OUTSIDE RECORDS SUMMARY | 2024-09-22 08:45 | XMS_ITS | Continuity of Care Document ---
Author Organization [facility] Address [address] [place] [address] Phone [phone] Care Team Providers Care Sky Line Yarder Name Role Phone Zoey Bhandari. Care Team Information Marine Rigger [phone] Paradise Palafox . IRIS Care Team Information Receiv er [phone] Problems Active Problems Provider Date Type 2 [...] twice a day Ignacio West M.D. 08/17/2024 Ucktjkee36vx/0.5ML Solution Pen-Inject inject weekly 6ml Ignacio West M.D. 10/29/2023 Farepbggy00cd Tablets 1 tablet by mouth every day 90tabs Ignacio West M.D. 10/29/2023 Obmrvryqybqg21ou/5GM (1%) Gel apply 1 packet to skin very morning 150gm Ignacio West M.D. 10/01/2023 Lisinopril-Hydrochlor dghwifofo05-06.5mg Tablets 1 by mouth every day 90taKenzi. CHICA Rhoades Hkwpunqxj668aoa Tablets 1 tablet by mouth every day 90Kenzi. CHICA Hogue History Medications Uqrvayrxcp745fi Capsules take 1 capsule by mouth twice a day 180caps Ignacio West M.D. 08/17/2024 - 08/17/2024 Ojbgjggcjiwi92.25mg/Ac t (1.62%) Gel Apply 2 Packets Topically [...] Comment: TNP Urinalysis, Complete 01/08/2024 [facility] Specific [place] 1.013 1.005-1.03 0 pH 7.5 5.0-7.5 Urine-Color [...] Hemoglobin A1c 6.3% Basic Metabolic Panel 01/29/2023 [facility] Glucose 118 mg/dL High (70-99) BUN 13 mg/dL (6-20) Creatinine 0.7 mg/dL (0.7-1.2) Sodium 137 mmol/L (133-145) Potassium 4.5 mmol/L (3.6-5.2) Chloride 99 mmol/L (98-107) Bicarbonate 28 mmol/L (22-29) Anion Gap 10 (4-17) Calcium 9.6 mg/dL (8.6-10.5) Estimated GFR Creatinine 113 ML/MIN/1.7 3M2 6 Lipid Panel 01/29/2023 [facility] Lab Cholesterol, Total 133 mg/dL (<200) Triglyceride 112 mg/dL (<150) HDL Chol 37 mg/dL Low (>39) LDL Cholesterol, Calculated 74 mg/dL (0-130) Non HDL Cholesterol (Calc) 96 mg/dL (<160) Urinalysis Complete 01/29/2023 [facility] Appear/Color YELLOW 7 SP. [place] 1.028 (1.002-1.0 30) Urine PH 6.5 (5.0-8.0) Urine Albumin TRACE Abnormal (Neg) Urine Glucose NEGATIVE (Neg) Urine Ketones NEGATIVE (Neg) Urine Bilirubin NEGATIVE (Neg) Urine Hemoglobin NEGATIVE (Neg) Urine Nitrite NEGATIVE (Neg) Urine Leukocyte NEGATIVE (Neg) Urobilinogen NORMAL mg/dL (Norm) Urine WBCs 1 /HPF (0-5) Urine RBCs 1 /HPF (0-3) Mucus SLIGHT /LPF Hemoglobin A1c 01/29/2023 [facility] Hemoglobin A1c 6.0 % High (4.0-5.6) 8 Complete Abc With Diff 01/29/2023 [facility] WBC 9.3 K/MM3 (4.0-11.0) [...] K/MM3 (1.3-7.0) Lymph # 3.0 K/MM3 (0.8-3.1) [place]# 0.8 K/MM3 (0.4-1.3) Eo # 0.1 K/MM3 (0.0-0.4) Baso # 0.1 K/MM3 (0.0-0.1) Abs. Imm Gran 0.0 K/MM3 Neut 57.8 % (44-76) Lymph 32.0 % (15-43) Monocyte 8.2 % (4.5-10.5) Eo 1.1 % (0-6) Baso 0.5 % (0-2) Imm Gran 0.4 % PSA 01/29/2023 [facility] PSA 0.1 NG/ML (0-4) 9 TSH With Reflex To FT4 01/29/2023 [facility] TSH With Reflex To FT4 1.67 uIU/mL (0.4-4.2) 25Oh Vitamin D 01/29/2023 [facility] 25Oh Vitamin D 45.4 NG/ML (20-50) Testosterone 01/29/2023 [facility] Testosterone 500 ng/dL (280-800) Hemoglobin A1c 11/27/2022 Inhouse Hemoglobin A1c 5.8% Glucose Fingerstick 11/27/2022 Inhouse Glucose Fingerstick 94 Glucose Fingerstick 08/25/2022 Inhouse Glucose Fingerstick 99 Hemoglobin A1c 08/25/2022 Inhouse Hemoglobin A1c 5.8% Testosterone 05/22/2022 [facility] Testosterone 304 ng/dL (280-800) Testosterone Total (Males > 15 Yrs) 05/08/2022 [facility] Testosterone Total (Males > 15 Yrs) <pending> Glucose Fingerstick 05/08/2022 Inhouse Glucose Fingerstick 126 Hemoglobin A1c 05/08/2022 Inhouse Hemoglobin A1c 6.0 Cortisol 02/07/2022 [facility] Cortisol 4.7 g/dL 10 Glucose Fingerstick 02/06/2022 Inhouse Glucose Fingerstick 135 Cortisol 02/06/2022 [facility] Cortisol <pending> Cortisol 02/02/2022 [facility] Cortisol 3.6 g/dL 11 Cortisol 01/12/2022 [facility] Cortisol <pending> Cortisol 01/09/2022 [facility] Cortisol 5.0 g/dL 12 Anti Thyroid Peroxidase AB 01/09/2022 [facility] Anti Thyroid Peroxidase AB <3.0 IU/mL (<5.6) 13 Testosterone 01/09/2022 [facility] Testosterone 554 ng/dL (280-800) LH 01/09/2022 [facility] LH 0.5 MIU/ML Low (1.5-12.4) 14 FSH 01/09/2022 [facility] FSH 0.8 MIU/ML Low (1.5-12.4) 15 Prolactin 01/09/2022 [facility] Prolactin 10.8 NG/ML (4.0-15.2) Urinary Microalbumin 01/09/2022 [facility] Micro-Albumin 24.2 mg/L High (<20) 16 Malb/Creat Ratio 19.1 MG/GM (0-20) Urine Creat For Micro Albumin 126.4 mg/dL Free T4 01/09/2022 [facility] Free T4 1.27 ng/dL (0.70-1.80 ) TSH 01/09/2022 [facility] TSH 2.05 uIU/mL (0.4-4.2) Complete Abc With Diff 01/09/2022 [facility] WBC 8.6 K/MM3 (4.0-11.0) [...] K/MM3 (1.3-7.0) Lymph # 2.7 K/MM3 (0.8-3.1) [place]# 0.6 K/MM3 (0.4-1.3) Eo # 0.2 K/MM3 (0.0-0.4) Baso # 0.1 K/MM3 (0.0-0.1) Abs. Imm Gran 0.0 K/MM3 Neut 58.0 % (44-76) Lymph 31.8 % (15-43) Monocyte 6.9 % (4.5-10.5) Eo 2.2 % (0-6) Baso 0.6 % (0-2) Imm Gran 0.5 % Urinalysis Complete 01/09/2022 [facility] Lab Appear/Color YELLOW 17 SP. [place] 1.019 (1.002-1.0 30) Urine PH 6.0 (5.0-8.0) Urine Albumin NEGATIVE (Neg) Urine Glucose NEGATIVE (Neg) Urine Ketones NEGATIVE (Neg) Urine Bilirubin NEGATIVE (Neg) Urine Hemoglobin NEGATIVE (Neg) Urine Nitrite NEGATIVE (Neg) Urine Leukocyte NEGATIVE (Neg) Urobilinogen NORMAL mg/dL (Norm) Urine WBCs 1 /HPF (0-5) Urine RBCs 1 /HPF (0-3) Mucus SLIGHT /LPF Squamous Epith <1 /HPF (0-8) Lipid Panel 01/09/2022 [facility] Cholesterol, Total 151 mg/dL (<200) Triglyceride 196 mg/dL High (<150) HDL Chol 32 mg/dL Low (>39) LDL Cholesterol, Calculated 80 mg/dL (0-130) Non HDL Cholesterol (Calc) 119 mg/dL (<160) Comprehensive Metabolic Panl 01/09/2022 [facility] Lab Glucose 104 mg/dL High [...] and 39 years old. Travison, et.al. JCEM 2017,102;8997-6730. PMID: 83531130. 6 Creatinine based est imated glomerular filtration (eGFR) in adults is calculated using the National Kidney Foundation recommended 2020 CKD-EPI equation. Estimates GFR from serum creatinine, age and sex. 7 CLEAR 8 MONITORING: In known diabetic patients, hemoglobin A1c targets should be discussed with health care provider. DIAGNOSTIC USE: The [place] Diabetes [employer] (ADA) and the World Health [...] presentation. This test was performed on the [employer] immunoassay system. 14 Reference Range: Follicular: 2.4-12.6 [...] sex. Procedures Date Code Description Status 08/25/2022 69884 Additional suppl ies, materials, staff time over and above usual Completed 05/08/2022 67983 Additional suppl ies, materials, staff time over and above usual Completed 02/06/2022 46945 Additional suppl ies, materials, staff time over and above usual Completed 12/23/2021 07363 Additional suppl ies, materials, staff time over [...]
[2024-09-22 11:26] LABS: Hemoglobin A1C 163.9256 umol/L; Total Hemoglobin (HGBA1C) 4278.6130 umol/L
[2024-09-22 11:44] LABS: Alanine Aminotransferase 36 U/L (0-40); Albumin Level 4.5 g/dL (3.5-5.0); Alkaline Phosphatase 58 U/L (39-117); Anion Gap 12 (12-20); Aspartate Amino Transferase 30 U/L (5-37); Blood Urea Nitrogen 8 mg/dL (9-16); Calcium 8.9 mg/dL (8.4-10.2); Carbon Dioxide 28 mmol/L (22-29); Chloride 100 mmol/L (96-108); Cholesterol 103 mg/dL (<200); Estimated Glomerular Filt Rate > 60; HDL Cholesterol 26 mg/dL (>40); Potassium 3.9 mmol/L (3.3-5.1); Sodium 136 mmol/L (135-145); Total Protein 7.0 g/dL (6.5-8.0); Triglycerides 119 mg/dL (<150)
[2024-09-22 11:56] LABS: Prostate Specific Antigen 0.11 ng/mL (<0.05-4.0); Vitamin B12 1204 pg/mL (200-900)
[2024-09-22 12:17] LABS: Microalbum/Creatinine Ratio Ur 41.8 ug/mg cr (<30)
[2024-09-29 16:33] LABS: Vitamin D 25-OH, D2 <4 ng/mL; Vitamin D 25-OH, D3 41 ng/mL; Vitamin D 25-OH, Total 41 ng/mL (30-100)
== END 2024-09-22 08:33 | disposition home or self-care (01) ==
LOC: HO.WFDLDS 08:32
PROVIDERS: Visit Provider Physician Assistant Medical
DX: I10 Essential (primary) hypertension (principal); E11.29 Type 2 diabetes mellitus with other diabetic kidney complication; R80.9 Proteinuria, unspecified; E03.9 Hypothyroidism, unspecified; E66.813 Obesity, class 3; E78.5 Hyperlipidemia, unspecified; Z12.5 Encounter for screening for malignant neoplasm of prostate; Z91.89 Other specified personal risk factors, not elsewhere classified
CPT/HCPCS: 36415; 80053; 80061; 82043; 82306; 82570; 82607; 83036; 84153; 84443

== ENCOUNTER 2024-11-28 07:51 | Outpatient (REF) | payer OTHER, SELFPAY ==
--- OUTSIDE RECORDS SUMMARY | 2024-11-28 08:01 | XMS_ITS | Continuity of Care Document ---
Author Organization [facility] Address [address] [place] [address] Phone [phone] Care Team Providers Care Buncher Hand Name Role Phone Zoey Bhandari. Care Team Information Celebrity Chef Entrepreneur Media Personality [phone] Paradise Palafox . IRIS Care Team Information Receiv er [phone] Problems Active Problems Provider Date Type 2 [...] twice a day Ignacio West M.D. 08/17/2024 Nqshuuay40xh/0.5ML Solution Auto-Inject inject weekly 6ml E11.9 Ignacio West M.D. 10/29/2023 Hteeqemqs88ki Tablets 1 tablet by mouth every day 90tabs Ignacio West M.D. 10/29/2023 Cuvtgmfnbzon58di/5GM (1%) Gel apply 1 packet to skin very morning 150gm Ignacio West M.D. 10/01/2023 Lisinopril-Hydrochlor lneeesvum81-22.5mg Tablets 1 by mouth every day 90Kenzi. CHICA Hogue Ihihzrvxc963hrd Tablets 1 tablet by mouth every day 90Zoey Hogue. History Medications Vjukpajxut800wd Capsules take 1 capsule by mouth twice a day 180caps Ignacio West M.D. 08/17/2024 - 08/17/2024 Vital Signs Date Vital Result Comment 08/17/2024 [...] Sergo 27 mg/dL 5-40 LDL Chol Calc ([facility]) 63 mg/dL 0-99 LDL Calc Comment: TNP Urinalysis, Complete 01/08/2024 [facility] Specific [place] 1.013 1.005-1.03 0 pH 7.5 5.0-7.5 Urine-Color [...] 1.4-7.0 Lymphs (Absolute) 2.8 x10E3/uL 0.7-3.1 Monocytes([facility] [place]) 0.7 x10E3/uL 0.1-0.9 Eos (Absolute) 0.1 x10E3/uL [...] Hemoglobin A1c 6.3% Basic Metabolic Panel 01/29/2023 [facility] Reference Lab Glucose 118 mg/dL High (70-99) BUN 13 mg/dL (6-20) Creatinine 0.7 mg/dL (0.7-1.2) Sodium 137 mmol/L (133-145) Potassium 4.5 mmol/L (3.6-5.2) Chloride 99 mmol/L (98-107) Bicarbonate 28 mmol/L (22-29) Anion Gap 10 (4-17) Calcium 9.6 mg/dL (8.6-10.5) Estimated GFR Creatinine 113 ML/MIN/1.7 3M2 6 Lipid Panel 01/29/2023 [facility] Reference Lab Cholesterol, Total 133 mg/dL (<200) Triglyceride 112 mg/dL (<150) HDL Chol 37 mg/dL Low (>39) LDL Cholesterol, Calculated 74 mg/dL (0-130) Non HDL Cholesterol (Calc) 96 mg/dL (<160) Urinalysis Complete 01/29/2023 [facility] Reference Lab Appear/Color YELLOW 7 SP. [place] 1.028 (1.002-1.0 30) Urine PH 6.5 (5.0-8.0) Urine Albumin TRACE Abnormal (Neg) Urine Glucose NEGATIVE (Neg) Urine Ketones NEGATIVE (Neg) Urine Bilirubin NEGATIVE (Neg) Urine Hemoglobin NEGATIVE (Neg) Urine Nitrite NEGATIVE (Neg) Urine Leukocyte NEGATIVE (Neg) Urobilinogen NORMAL mg/dL (Norm) Urine WBCs 1 /HPF (0-5) Urine RBCs 1 /HPF (0-3) Mucus SLIGHT /LPF Hemoglobin A1c 01/29/2023 [facility] Reference Lab Hemoglobin A1c 6.0 % High (4.0-5.6) 8 Complete Abc With Diff 01/29/2023 [facility] Reference Lab WBC 9.3 K/MM3 (4.0-11.0) RBC [...] K/MM3 (1.3-7.0) Lymph # 3.0 K/MM3 (0.8-3.1) [place]# 0.8 K/MM3 (0.4-1.3) Eo # 0.1 K/MM3 (0.0-0.4) Baso # 0.1 K/MM3 (0.0-0.1) Abs. Imm Gran 0.0 K/MM3 Neut 57.8 % (44-76) Lymph 32.0 % (15-43) Monocyte 8.2 % (4.5-10.5) Eo 1.1 % (0-6) Baso 0.5 % (0-2) Imm Gran 0.4 % PSA 01/29/2023 [facility] Reference Lab PSA 0.1 NG/ML (0-4) 9 TSH With Reflex To FT4 01/29/2023 [facility] Reference Lab TSH With Reflex To FT4 1.67 uIU/mL (0.4-4.2) 25Oh Vitamin D 01/29/2023 [facility] Lab 25Oh Vitamin D 45.4 NG/ML (20-50) Testosterone 01/29/2023 [facility] Lab Testosterone 500 ng/dL (280-800) Hemoglobin A1c 11/27/2022 Inhouse Hemoglobin A1c 5.8% Glucose Fingerstick 11/27/2022 Inhouse Glucose Fingerstick 94 Glucose Fingerstick 08/25/2022 Inhouse Glucose Fingerstick 99 Hemoglobin A1c 08/25/2022 Inhouse Hemoglobin A1c 5.8% Testosterone 05/22/2022 [facility] Lab Testosterone 304 ng/dL (280-800) Testosterone Total (Males > 15 Yrs) 05/08/2022 [facility] Lab Testosterone Total (Males > 15 Yrs) <pending> Glucose Fingerstick 05/08/2022 Inhouse Glucose Fingerstick 126 Hemoglobin A1c 05/08/2022 Inhouse Hemoglobin A1c 6.0 Cortisol 02/07/2022 [facility] Lab Cortisol 4.7 g/dL 10 Glucose Fingerstick 02/06/2022 Inhouse Glucose Fingerstick 135 Cortisol 02/06/2022 [facility] Reference Lab Cortisol <pending> Cortisol 02/02/2022 [facility] Lab Cortisol 3.6 g/dL 11 Cortisol 01/12/2022 [facility] Reference Lab Cortisol <pending> Cortisol 01/09/2022 [facility] Lab Cortisol 5.0 g/dL 12 Anti Thyroid Peroxidase AB 01/09/2022 [facility] Reference Lab Anti Thyroid Peroxidase AB <3.0 IU/mL (<5.6) 13 Testosterone 01/09/2022 [facility] Reference [facility] Testosterone 554 ng/dL (280-800) LH 01/09/2022 [facility] Reference Lab LH 0.5 MIU/ML Low (1.5-12.4) 14 FSH 01/09/2022 [facility] Lab FSH 0.8 MIU/ML Low (1.5-12.4) 15 Prolactin 01/09/2022 [facility] Prolactin 10.8 NG/ML (4.0-15.2) Urinary Microalbumin 01/09/2022 [facility] Micro-Albumin 24.2 mg/L High (<20) 16 Malb/Creat Ratio 19.1 MG/GM (0-20) Urine Creat For Micro Albumin 126.4 mg/dL Free T4 01/09/2022 [facility] Reference Lab Free T4 1.27 ng/dL (0.70-1.80 ) TSH 01/09/2022 [facility] TSH 2.05 uIU/mL (0.4-4.2) Complete Abc With Diff 01/09/2022 [facility] WBC 8.6 K/MM3 (4.0-11.0) RBC [...] K/MM3 (1.3-7.0) Lymph # 2.7 K/MM3 (0.8-3.1) [place]# 0.6 K/MM3 (0.4-1.3) Eo # 0.2 K/MM3 (0.0-0.4) Baso # 0.1 K/MM3 (0.0-0.1) Abs. Imm Gran 0.0 K/MM3 Neut 58.0 % (44-76) Lymph 31.8 % (15-43) Monocyte 6.9 % (4.5-10.5) Eo 2.2 % (0-6) Baso 0.6 % (0-2) Imm Gran 0.5 % Urinalysis Complete 01/09/2022 [facility] Reference Lab Appear/Color YELLOW 17 SP. [place] 1.019 (1.002-1.0 30) Urine PH 6.0 (5.0-8.0) Urine Albumin NEGATIVE (Neg) Urine Glucose NEGATIVE (Neg) Urine Ketones NEGATIVE (Neg) Urine Bilirubin NEGATIVE (Neg) Urine Hemoglobin NEGATIVE (Neg) Urine Nitrite NEGATIVE (Neg) Urine Leukocyte NEGATIVE (Neg) Urobilinogen NORMAL mg/dL (Norm) Urine WBCs 1 /HPF (0-5) Urine RBCs 1 /HPF (0-3) Mucus SLIGHT /LPF Squamous Epith <1 /HPF (0-8) Lipid Panel 01/09/2022 [facility] Lab Cholesterol, Total 151 mg/dL (<200) Triglyceride 196 mg/dL High (<150) HDL Chol 32 mg/dL Low (>39) LDL Cholesterol, Calculated 80 mg/dL (0-130) Non HDL Cholesterol (Calc) 119 mg/dL (<160) Comprehensive Metabolic Panl 01/09/2022 [facility] Reference Lab Glucose 104 mg/dL High (70-99) [...] <30) between 19 and 39 years old. reinier Marquez.al. JCEM 2017,102;4606-0128. PMID: [id number]. 6 Creatinine based est imated glomerular filtration (eGFR) in adults is calculated using the National Kidney Foundation recommended 2020 CKD-EPI equation. Estimates GFR from serum creatinine, age and sex. 7 CLEAR 8 MONITORING: In known diabetic patients, hemoglobin A1c targets should be discussed with health care provider. DIAGNOSTIC USE: The [place] Diabetes [employer] (ADA) and the World Health [...] presentation. This test was performed on the [employer] immunoassay system. 14 Reference Range: Follicular: 2.4-12.6 [...] sex. Procedures Date Code Description Status 08/25/2022 88977 Additional suppl ies, materials, staff time over and above usual Completed 05/08/2022 93761 Additional suppl ies, materials, staff time over and above usual Completed 02/06/2022 54731 Additional suppl ies, materials, staff time over and above usual Completed 12/23/2021 [id number] Additional suppl ies, materials, staff time over [...]
[2024-11-28 11:34] LABS: MANUAL DIFF FLAG NO
[2024-11-28 11:42] LABS: Hematocrit 52.6 % (42.0-52.0); Hemoglobin 17.9 g/dl (14.0-18.0); Imm Gran Abs Auto 0.03 X10*3/uL (0.00-0.03); Imm Gran Pct Auto 0.5 % (0.0-0.4); Lymphocytes Absolute Auto 2.2 X10*3/uL (1.2-4.9); Mean Corpuscular HGB Conc 34.0 g/dl (31.0-36.0); Mean Corpuscular Hemoglobin 28.5 pg (27.0-33.0); Mean Corpuscular Volume 83.6 fL (80.0-98.0); NRBC Abs Auto 0.000 X10*3/uL (0.0-0.012); NRBC Pct Auto 0.0 /100WBC (0.0-0.2); Platelet Count 196 X10*3/uL (160-400); Red Blood Count 6.29 X10*6/uL (4.60-5.80); White Blood Count 6.7 X10*3/uL (4.8-10.8)
[2024-11-28 12:08] LABS: Alanine Aminotransferase 42 U/L (0-40); Albumin Level 4.8 g/dL (3.5-5.0); Alkaline Phosphatase 58 U/L (39-117); Anion Gap 15 (12-20); Aspartate Amino Transferase 34 U/L (5-37); Blood Urea Nitrogen 8 mg/dL (9-16); Calcium 9.7 mg/dL (8.4-10.2); Carbon Dioxide 25 mmol/L (22-29); Chloride 101 mmol/L (96-108); Estimated Glomerular Filt Rate > 60; Potassium 3.8 mmol/L (3.3-5.1); Sodium 137 mmol/L (135-145); Total Protein 7.6 g/dL (6.5-8.0)
[2024-11-28 12:26] LABS: Prostate Specific Antigen 0.12 ng/mL (<0.05-4.0)
[2024-12-01 11:14] LABS: TS Negative Control Passed; TS Panel A 0; TS Panel B 0; TS Positive Control Passed; TSpotTB Negative (Negative)
== END 2024-11-28 07:52 | disposition home or self-care (01) ==
LOC: HO.WFDLDS 07:51
PROVIDERS: Referring Provider Physician Assistant; Visit Provider Physician Assistant Medical
DX: Z12.5 Encounter for screening for malignant neoplasm of prostate (principal); Z11.1 Encounter for screening for respiratory tuberculosis; Z79.899 Other long term (current) drug therapy
CPT/HCPCS: 36415; 80053; 84153; 85025; 86481

== ENCOUNTER 2025-02-01 15:08 | Outpatient (AMB) | payer OTHER, SELFPAY ==
--- NOTE | 2025-02-01 15:38 | MHC.PC.OV ---
Vital Signs 02/01/25 15:42 Height 5 ft 6 in Weight 279 lb 2 oz BMI 45.0 BP 122/66 Blood Pressure Location Rt brachial Position Sitting Respiration 15 Pulse 73 Pulse Source Pulse Oximeter Temp 97.5 F Temp Source Temporal Artery Scan Pulse Oximetry (%) 97 Oxygen Delivery Method Room Air Intake Visit Reasons: diabetes Intake Note: Darwin presents in the office today for a follow up to his diabetes. Security Incident Handler Required: No Allergies codeine Adverse Reaction (Unknown, Verified 02/01/25 15:40) Unknown Tobacco use date assessed: 02/01/25 Dental Screening Dental Screen Date: 02/01/25 Did you have a dental visit in the last 12 months?: Yes Did you have a dental problem in the last 6 months where you did not have access to dental care?: No Was dental information given to patient?: Patient has dentist HPI HPI Comments History of Present Illness Details This is a 49-year-old male with a past medical history of low testosterone, severe obesity, hypertension, type 2 diabetes and psoriatic arthritis and osteoarthritis presenting for follow up. Type 2 diabetes, obesity, low testosterone-followed by endocrinology, Dr. Edge His last hemoglobin A1c was 6.0%, per patient. He is compliant with medications. He has weight loss on Mounjaro. He is on rosuvastatin. Psoriatic arthritis-followed by [facility], Reta Ley. Taking Skyrizi. Right hip pain-he had an x-ray that showed severe osteoarthritis. He is followed at [facility]. He gets cortisone injections every 3 months. He does physical therapy. He will need a hip replacement possibly in a year, but he is trying to get down to 250 lb per the recommendation of Orthopedics. He is following a low-carbohydrate diet and using protein shakes. He is also on Mounjaro. Taking duloxetine 30 mg and hydrocodone-acetaminophen 5-325 mg twice daily as needed. Gabapentin ineffective. He also takes Tylenol as needed. Hypertension, microalbuminuria-compliant with hydrochlorothiazide-lisinopril. Blood pressure is controlled. Nonsmoker. Does not drink alcohol. Patient up-to-date with flu and COVID-19 vaccines through the pharmacy. 12/11/2019 Tdap Received PPSV23 in 2013. Eye exam up-to-date. No diabetic retinopathy. Colonoscopy was done at [facility] in 2023. Patient was advised to repeat this in 10 years. He has a physical scheduled in March. We were discussing routine screenings today for cardiovascular health. His father had an RI in his 50s. We discussed getting EKG, echo and coronary artery CT scan. He deferred them today, but he would like to have them ordered when he comes back for his physical. ROS: Constitutional: No unexplained weight loss, fever, chills, fatigue or night sweats. Respiratory: No shortness of breath, cough or sputum production. Cardiovascular: No chest pain, chest pressure or chest discomfort. No palpitations. Gastrointestinal: No anorexia, nausea, vomiting or diarrhea. No abdominal pain or blood in stool. Neurologic: No headache, dizziness, syncope, unilateral weakness, ataxia Musculoskeletal: See HPI Endocrine: No cold or heat intolerance. No polyuria or polydipsia. Psychiatric: See HPI. Denies SI/HI Physical exam: Constitutional: Alert, in no distress. Neck: Supple, Full range of motion. No lymphadenopathy. No palpable thyroid masses. Respiratory: Clear to auscultation. Cardiovascular: S1 S2 regular. No murmurs. Extremities: Warm and well perfused. 1+ bilateral lower extremity edema. Patient wearing compression stockings. Psychiatric: Normal mood and affect [facility] Medical History (Updated 02/01/25 @ 16:38 by IRIS Reyes) Cough Acute respiratory disease Osteoarthritis of right hip Class 3 obesity Morbid obesity Allergic rhinitis Microalbuminuria Right hip pain Essential hypertension Low testosterone Type II diabetes mellitus Hypothyroidism Diabetes mellitus Dyslipidemia Hypertension Psoriasis Surgical History H/O wisdom tooth extraction Hx of adenoidectomy Family History Father Psoriatic arthritis Social History (Updated 09/11/24 @ 14:53 by Kimberlee Edmond MA) Household Members: Spouse Housing: House Alcohol intake: never Patient Tobacco Use Status: Never used Tobacco e-Cigarette/Vaping Use: Never Used Second Hand Smoke Exposure: No service: No Current occupational status: employed 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 Current occupational exposures/hazards: No Cognitive needs: No Hearing needs: No Vision needs: Yes Questionnaire Thrive Questionnaire Date Thrive assessed: 03/06/24 I am a: Patient What is your living situation today?: I have a steady place to live Within the past 12 months, did the food you bought not last and you didn't have the money to get more?: Never true Within the past 12 months, did you worry whether your food would run out before you got money to buy more?: Never true Do you have trouble paying for medicines?: No Do you have trouble getting transportation to medical appointments?: No Do you have trouble paying your heating and electricity bill?: No Do you have trouble taking care of your child, family member or friend?: No Do you have trouble with day-to-day activities such as bathing, preparing meals, shopping, managing finances, etc.?: No Are you currently unemployed and looking for a job?: No Are you interested in more education?: No Please select the resources that you would like help with: None Currently or been in a relationship where the following occur: No concerns reported THRIVE Score: 0 LUIS-7 AMB Questionnaire LUIS-7 Date LUIS - 7 assessed: 04/13/24 Source: Developed by Drs. Ge Downs, Mary Dunn, Aric Lugo and colleagues, with an educational lorenza from Risk I/[employer]. Physical exam (Primary Care) Tobacco/Smoking Status: Tobacco use Status Tobacco use date assessed 09/11/24 02/01/25 15:39 Patient Tobacco Use Status Never used Tobacco 02/01/25 15:39 e-Cigarette/Vaping Use Never Used 02/01/25 15:39 Thrive Assessment: Date of Thrive Assessment Date Thrive assessed 03/06/24 02/01/25 15:39 Currently or been in a relationship where the following occur: No concerns reported Coding Level of Care Code Est Pt Level 4 (51846) Complex visit Add On G2211 Diagnoses Essential hypertension I10 Type 2 diabetes mellitus with diabetic microalbuminuria, without long-term current use of insulin E11.29; R80.9 Diabetes mellitus care home insulin use: without intermodal dispatcher use Diabetes mellitus complication status: with kidney complications Diabetes mellitus complication detail: with diabetic microalbuminuria Acquired hypothyroidism E03.9 Hypothyroidism type: acquired Microalbuminuria R80.9 Primary osteoarthritis of right hip M16.11 Osteoarthritis type: primary Morbid obesity E66.01 Assessment & Plan Assessment & Plan (1) Essential hypertension: Code(s): I10 - Essential (primary) hypertension Category: Medical Plan: Well-controlled. Continue low-sodium diet and avoidance of caffeine. Continue lisinopril-hydrochlorothiazide 20-12.5 mg. (2) Type II diabetes mellitus: Code(s): E11.9 - Type 2 diabetes mellitus without complications Category: Medical Qualifiers: Diabetes mellitus intermodal dispatcher insulin use: without intermodal dispatcher use Diabetes mellitus complication status: with kidney complications Diabetes mellitus complication detail: with diabetic microalbuminuria Qualified Code(s): E11.29 - Type 2 diabetes mellitus with other diabetic kidney complication; R80.9 - Proteinuria, unspecified Plan: Hemoglobin A1c 6% for patient. Continue current medications. Followed by endocrinology. Limit portion sizes. Follow up low carbohydrate, low sugar diet. (3) Hypothyroidism: Code(s): E03.9 - Hypothyroidism, unspecified Category: Medical Qualifiers: Hypothyroidism type: acquired Qualified Code(s): E03.9 - Hypothyroidism, unspecified Plan: Continue levothyroxine. (4) Microalbuminuria: Code(s): R80.9 - Proteinuria, unspecified Category: Medical Plan: Continue BIBI inhibitor. Avoid nephrotoxic medications. (5) Osteoarthritis of right hip: Code(s): M16.11 - Unilateral primary osteoarthritis, right hip Category: Medical Qualifiers: Osteoarthritis type: primary Qualified Code(s): M16.11 - Unilateral primary osteoarthritis, right hip Plan: Followed by Orthopedics. He receives cortisone injections every 3 months. He will need a hip replacement. Increase duloxetine to 30 mg twice daily. Black box warning reviewed. Continue hydrocodone-acetaminophen as needed for severe breakthrough pain. Advised this is a habit-forming controlled substance. Do not drive or operate heavy machinery or drink alcohol with the medication. He understands the risks of the medicine. (6) Morbid obesity: Code(s): E66.01 - Morbid (severe) obesity due to excess calories Category: Medical Plan: Continue efforts at weight loss. He is on the maximum dose of Mounjaro. Plan He has a physical in March. Orders: Orders Microalbumin, Random (w Creat) Today E11.9 - Type 2 diabetes mellitus without complications Lipid Panel Today E11.29 - Type 2 diabetes mellitus with other diabetic kidney complication, E78.5 - Hyperlipidemia, unspecified, R80.9 - Proteinuria, unspecified Comprehensive Met. Panel Today E11.29 - Type 2 diabetes mellitus with other diabetic kidney complication, R80.9 - Proteinuria, unspecified Medications: Changed From duloxetine 30 mg PO DAILY 90 caps 3RF To duloxetine 30 mg PO BID 180 caps 3RF Refilled hydrocodone-acetaminophen 5-325 mg Partial Fill upon patient request. 1 tab PO BID PRN 30 tabs 0RF pain
[2025-02-01 15:42] VITALS: BP 122/66; PULSE 73; RESP 15; TEMP 36.4; O2SAT 97; BMI 45.0
--- OUTSIDE RECORDS SUMMARY | 2025-02-01 21:21 | XMS_ITS | Continuity of Care Document ---
Author Organization [facility] Address [address] [place] [address] Phone [phone] Care Team Providers Care Billing Clinician Name Role Phone Zoey Bhandari. Care Team Information Hat Blocking Operator [phone] Paradise Palafox . IRIS Care Team Information Receiv er [phone] Problems Active Problems Provider Date Type 2 diabetes mellitus Ignacio West M.D. Onset: 12/23/2021 Essential hypertension Ignacio West M.D. O nset: 12/23/2021 Obesity Ignacio West M.D. Onset: 1 Hypogonadotropic hypogonadism Ignacio West M.D. Onset: 05/08/2022 Hypothyroidism Ignacio Wset M.D. Onset: 0 05/08/2022 Psoriasis Ignacio West M.D. Onset: 0 08/25/2022 Social History Type Date Description Comments Sex Male Sex Unknown Tobacco Use Start: Unknown Never Smoked Cigarettes ETOH Use Occasionally consumes wine Allergies and adverse reactions Active Allergies Criticality Reaction Severity Comments Date Codeine Unable to assess criticality 12/23/2021 Medications Active Medications SIG Qnty Indications Ordering Provider Date Azelastine HCL (Nasal)0.1% Solution use 2 sprays in each nostril twice daily Ignacio West M.D. 01/10/2025 Whdondct15to/0.5ML Solution Auto-Inject inject weekly 6ml E11.9 Ignacio West M.D. 10/29/2023 Ltmipbunw54pm Tablets 1 tablet by mouth every day 90tabs Ignacio Ramirezeden, M.D. 10/29/2023 Slwgxyattiqx94iy/5GM (1%) Gel apply 1 packet to skin very morning 150gm Ignacio West M.D. 10/01/2023 Lisinopril-Hydrochlor pqtdtomyd81-74.5mg Tablets 1 by mouth every day 90taKenzi. CHICA Rhoades Kthvxwbnz114pbk Tablets 1 tablet by mouth every day 90taKenzi. CHICA Rhoades Oefpyttvi092ds Capsules Unknown History Medications Pubuckfmqb755su Capsules take 1 capsule by mouth twice a day 180caps Ignacio West M.D. 08/17/2024 - 08/17/2024 Gabapentin (Once-Daily)300mg Tablets take 1 capsule by mouth twice a day Ignacio West M.D. 08/17/2024 - 01/10/2025 Vital Signs Date Vital Result Comment 01/10/2025 10:22am BP Systolic 124 mmHg BP Diastolic 72 mmHg Heart Rate 80 /min Weight 283.00 lb Results Test Acquired Date Facility Test Result H/L Range Note Hemoglobin A1c 01/10/2025 Inhouse Hemoglobin A1c 5.8 Glucose Fingerstick 01/10/2025 Inhouse Glucose Fingerstick 178 Hemoglobin A1c 08/17/2024 Inhouse Hemoglobin A1c 5.9% [...] Comment: TNP Urinalysis, Complete 01/08/2024 [facility] Specific [place] 1.013 1.005-1.03 0 pH 7.5 5.0-7.5 Urine-Color [...] 1.4-7.0 Lymphs (Absolute) 2.8 x10E3/uL 0.7-3.1 Monocytes(Absol [facility]) 0.7 x10E3/uL 0.1-0.9 Eos (Absolute) 0.1 x10E3/uL [...] 01/08/2024 [facility] Testosterone 791 ng/dL [phone] 5 Hemoglobin A1c 10/29/2023 Inhouse Hemoglobin A1c 6.0% Glucose Fingerstick 10/29/2023 Inhouse Glucose Fingerstick 145 Glucose Fingerstick 05/21/2023 Inhouse Glucose Fingerstick 97 Hemoglobin A1c 05/21/2023 Inhouse Hemoglobin A1c 6.3% Basic Metabolic Panel 01/29/2023 [facility] Glucose 118 mg/dL High (70-99) BUN 13 mg/dL (6-20) Creatinine 0.7 mg/dL (0.7-1.2) Sodium 137 mmol/L (133-145) Potassium 4.5 mmol/L (3.6-5.2) Chloride 99 mmol/L (98-107) Bicarbonate 28 mmol/L (22-29) Anion Gap 10 (4-17) Calcium 9.6 mg/dL (8.6-10.5) Estimated GFR Creatinine 113 ML/MIN/1.7 3M2 6 Lipid Panel 01/29/2023 [facility] Cholesterol, Total 133 mg/dL (<200) Triglyceride 112 mg/dL (<150) HDL Chol 37 mg/dL Low (>39) LDL Cholesterol, Calculated 74 mg/dL (0-130) Non HDL Cholesterol (Calc) 96 mg/dL (<160) Urinalysis Complete 01/29/2023 [facility] Appear/Color YELLOW 7 SP. [place] 1.028 (1.002-1.0 30) Urine PH 6.5 (5.0-8.0) Urine Albumin TRACE Abnormal (Neg) Urine Glucose NEGATIVE (Neg) Urine Ketones NEGATIVE (Neg) Urine Bilirubin NEGATIVE (Neg) Urine Hemoglobin NEGATIVE (Neg) Urine Nitrite NEGATIVE (Neg) Urine Leukocyte NEGATIVE (Neg) Urobilinogen NORMAL mg/dL (Norm) Urine WBCs 1 /HPF (0-5) Urine RBCs 1 /HPF (0-3) Mucus SLIGHT /LPF Hemoglobin A1c 01/29/2023 [facility] Hemoglobin A1c 6.0 % High (4.0-5.6) 8 Complete Abc With Diff 01/29/2023 [facility] WBC 9.3 K/MM3 (4.0-11.0) [...] K/MM3 (1.3-7.0) Lymph # 3.0 K/MM3 (0.8-3.1) Sweet [place]# 0.8 K/MM3 (0.4-1.3) Eo # 0.1 K/MM3 (0.0-0.4) Baso # 0.1 K/MM3 (0.0-0.1) Abs. Imm Gran 0.0 K/MM3 Neut 57.8 % (44-76) Lymph 32.0 % (15-43) Monocyte 8.2 % (4.5-10.5) Eo 1.1 % (0-6) Baso 0.5 % (0-2) Imm Gran 0.4 % PSA 01/29/2023 [facility] PSA 0.1 NG/ML (0-4) 9 TSH With Reflex To FT4 01/29/2023 [facility] TSH With Reflex To FT4 1.67 uIU/mL (0.4-4.2) 25Oh Vitamin D 01/29/2023 [facility] 25Oh Vitamin D 45.4 NG/ML (20-50) Testosterone 01/29/2023 [facility] Testosterone 500 ng/dL (280-800) Glucose Fingerstick 11/27/2022 Inhouse Glucose Fingerstick 94 Hemoglobin A1c 11/27/2022 Inhouse Hemoglobin A1c 5.8% Glucose Fingerstick 08/25/2022 Inhouse Glucose Fingerstick 99 Hemoglobin A1c 08/25/2022 Inhouse Hemoglobin A1c 5.8% Testosterone 05/22/2022 [facility] Testosterone 304 ng/dL (280-800) Testosterone Total (Males > 15 Yrs) 05/08/2022 [facility] Testosterone Total (Males > 15 Yrs) <pending> Glucose Fingerstick 05/08/2022 Inhouse Glucose Fingerstick 126 Hemoglobin A1c 05/08/2022 Inhouse Hemoglobin A1c 6.0 Cortisol 02/07/2022 [facility] Cortisol 4.7 g/dL 10 Glucose Fingerstick 02/06/2022 Inhouse Glucose Fingerstick 135 Cortisol 02/06/2022 [facility] Cortisol <pending> Cortisol 02/02/2022 [facility] Cortisol 3.6 g/dL 11 Cortisol 01/12/2022 [facility] Cortisol <pending> Cortisol 01/09/2022 [facility] Cortisol 5.0 g/dL 12 Anti Thyroid Peroxidase AB 01/09/2022 [facility] Anti Thyroid Peroxidase AB <3.0 IU/mL (<5.6) 13 Testosterone 01/09/2022 [facility] Testosterone 554 ng/dL (280-800) LH 01/09/2022 [facility] LH 0.5 MIU/ML Low (1.5-12.4) 14 FSH 01/09/2022 [facility] FSH 0.8 MIU/ML Low (1.5-12.4) 15 Prolactin 01/09/2022 [facility] Prolactin 10.8 NG/ML (4.0-15.2) Urinary Microalbumin 01/09/2022 [facility] Micro-Albumin 24.2 mg/L High (<20) 16 Malb/Creat Ratio 19.1 MG/GM (0-20) Urine Creat For Micro Albumin 126.4 mg/dL Free T4 01/09/2022 [facility] Free T4 1.27 ng/dL (0.70-1.80 ) TSH 01/09/2022 [facility] TSH 2.05 uIU/mL (0.4-4.2) Complete Abc With Diff 01/09/2022 [facility] WBC 8.6 K/MM3 (4.0-11.0) [...] K/MM3 (1.3-7.0) Lymph # 2.7 K/MM3 (0.8-3.1) Sweet [place]# 0.6 K/MM3 (0.4-1.3) Eo # 0.2 K/MM3 (0.0-0.4) Baso # 0.1 K/MM3 (0.0-0.1) Abs. Imm Gran 0.0 K/MM3 Neut 58.0 % (44-76) Lymph 31.8 % (15-43) Monocyte 6.9 % (4.5-10.5) Eo 2.2 % (0-6) Baso 0.6 % (0-2) Imm Gran 0.5 % Urinalysis Complete 01/09/2022 [facility] Appear/Color YELLOW 17 SP. [place] 1.019 (1.002-1.0 30) Urine PH 6.0 (5.0-8.0) Urine Albumin NEGATIVE (Neg) Urine Glucose NEGATIVE (Neg) Urine Ketones NEGATIVE (Neg) Urine Bilirubin NEGATIVE (Neg) Urine Hemoglobin NEGATIVE (Neg) Urine Nitrite NEGATIVE (Neg) Urine Leukocyte NEGATIVE (Neg) Urobilinogen NORMAL mg/dL (Norm) Urine WBCs 1 /HPF (0-5) Urine RBCs 1 /HPF (0-3) Mucus SLIGHT /LPF Squamous Epith <1 /HPF (0-8) Lipid Panel 01/09/2022 [facility] Cholesterol, Total 151 mg/dL (<200) Triglyceride 196 mg/dL High (<150) HDL Chol 32 mg/dL Low (>39) LDL Cholesterol, Calculated 80 mg/dL (0-130) Non HDL Cholesterol (Calc) 119 mg/dL (<160) Comprehensive Metabolic Panl 01/09/2022 [facility] Glucose 104 mg/dL High [...] and 40 years old. Jimmy, et.al. JCEM 2017,102;4510-5596. PMID: [id number]. 6 Creatinine based est imated glomerular filtration (eGFR) in adults is calculated using the National Kid[employer] Foundation recommended 2020 CKD-EPI equation. Estimates GFR from serum creatinine, age and sex. 7 CLEAR 8 MONITORING: In known diabetic patients, hemoglobin A1c targets should be discussed with health care provider. DIAGNOSTIC USE: The [place] [employer] (ADA) and the World Health [...] presentation. This test was performed on the [employer] immunoassay system. 14 Reference Range: Follicular: 2.4-12.6 [...] sex. Procedures Date Code Description Status 08/25/2022 00124 Additional suppl ies, materials, staff time over and above usual Completed 05/08/2022 94113 Additional suppl ies, materials, staff time over and above usual Completed 02/06/2022 71709 Additional suppl ies, materials, staff time over and above usual Completed 12/23/2021 99410 Additional suppl ies, materials, staff time over and above usual Completed Medical Devices Description No Information Available Encounters Type Date Location Provider Dx Diagnosis Office Visit 01/10/2025 10:30a Main Office Ignacio West M.D. E11.9 Type 2 diabetes mellitus without complications E29.1 Testicular hypofunct ion Assessments Date Code Description Provider 01/10/2025 E11.9 Type 2 diabetes mellitus without complications Ignaico West M.D. 01/10/2025 E29.1 Hypogonadism Ignacio saavedra M.D. Plan of Treatment Future Appointment(s):* 05/09/2025 1:00 pm - Ignacio West M.D. at Main Office 01/10/2025 - Ignacio West M.D.* E11.9 Type 2 diabetes mellitus without complications * E29.1 Hypogonadism * * New Labs:* CBC With Differential/Platelet, Ordered: 01/10/25 * TSH RFX On Abnormal To Free T4, Ordered: 01/10/25 Functional Status Description No Information Available Mental Status Description No Information Available Referrals Description No Information Available
== END 2025-02-01 16:37 | disposition home or self-care (01) ==
LOC: HO.HMCFM 15:09
PROVIDERS: PCP Physician Assistant Medical; Visit Provider Physician Assistant Medical
DX: I10 Essential (primary) hypertension (principal); E11.29 Type 2 diabetes mellitus with other diabetic kidney complication; E66.01 Morbid (severe) obesity due to excess calories; Z68.42 Body mass index [BMI] 45.0-49.9, adult; R80.9 Proteinuria, unspecified; E03.9 Hypothyroidism, unspecified; M16.11 Unilateral primary osteoarthritis, right hip